=== PATIENT | male | born 1935 | race Caucasian/White ===

== ENCOUNTER 2016-12-18 09:09 | Emergency (ER) | payer MEDICARE ==
[2016-12-18] MEDS ORDERED: Codeine/Promethazine 10-6.25 MG/5 ML Syrup 5 ML UD Cup PO ONE (09:10)
[2016-12-18 09:12] VITALS: BP 135/63
[2016-12-18] MEDS ORDERED: methylPREDNISolone Acetate 80 MG/ML SDV IM ONE (09:47)
[2016-12-18] MEDS ORDERED: cefTRIAXone 1 GM Vial IM ONE (09:47)
[2016-12-18] MEDS ORDERED: Lidocaine 1% 20 ML MDV INJECT ONE (09:47)
[2016-12-18] MEDS ORDERED: Take Home: Codeine/Promethazine 10-6.25 MG/5 ML Syrup 5 ML, 2 Cup Pack PO ONE (09:48)
--- NOTE | 2016-12-18 09:51 | EDM.PDOC ---
ED HPI GENERAL MEDICAL PROBLEM - General Chief Complaint: Respiratory Problem Stated Complaint: cough, sore throat, aches Time Seen by Provider: 12/18/16 09:35 Source of Information: Reports: Patient History Limitations: Reports: No Limitations - History of Present Illness INITIAL COMMENTS - FREE TEXT/NARRATIVE: Patient presents to ER with a 2 day history of cough, shortness of breath, wheezing and a sore throat. States sinuses have been congested as well. Notes postnasal drainage. Denies any fevers. Admits to chest discomfort due to the cough. Unable to sleep due to cough. Has had production of thick phlegm. Does have a history of asthma but admits he hasn't been taking his Symbicort. Does have many chronic medical concerns. Onset: Gradual Duration: Day(s): Location: Reports: Head, Chest Associated Symptoms: Reports: Cough, cough w sputum, Malaise, Shortness of Breath. Denies: Fever/Chills, Loss of Appetite, Nausea/Vomiting - Related Data Allergies Allergy/AdvReac Type Severity Reaction Status Date / Time phenytoin [From Dilantin] Allergy Cannot Verified 12/18/16 09:26 Remember Home Meds: Home Meds Aspirin 325 mg PO DAILY 12/18/16 [History] Budesonide/Formoterol [Symbicort 160-4.5 MCG] 2 puff INH BID 12/18/16 [History] Cholecalciferol (Vitamin D3) [Vitamin D3] 3 tab PO DAILY 12/18/16 [History] Cyanocobalamin (Vitamin B-12) [Vitamin B-12] 1,000 mcg PO DAILY 12/18/16 [ History] Doxazosin Mesylate [Cardura XL] 4 mg PO DAILY 12/18/16 [History] Ezetimibe 0.5 tab PO DAILY 12/18/16 [History] Ferrous Sulfate [Iron] 325 mg PO DAILY 12/18/16 [History] Finasteride 5 mg PO DAILY 12/18/16 [History] Levothyroxine Sodium [Levo-T] 50 mcg PO DAILY 12/18/16 [History] Lisinopril 10 mg PO DAILY 12/18/16 [History] Magnesium 250 mg PO DAILY 12/18/16 [History] Multivitamin [Multi-Vitamin Daily] 1 each PO DAILY 12/18/16 [History] Propranolol HCl 10 mg PO BID 12/18/16 [History] Sertraline HCl 100 mg PO DAILY 12/18/16 [History] Simvastatin [Zocor] 20 mg PO DAILY 12/18/16 [History] Vitamin B Complex [B Complex] 1 each PO DAILY 12/18/16 [History] amLODIPine Besylate [Amlodipine Besylate] 10 mg PO DAILY 12/18/16 [History] glipiZIDE [Glipizide ER] 10 mg PO DAILY 12/18/16 [History] Past Medical History Cardiovascular History: Reports: Heart Murmur, High Cholesterol, Hypertension, [place] Respiratory History: Reports: Asthma, COPD Gastrointestinal History: Reports: GERD Genitourinary History: Reports: BPH Neurological History: Reports: Other (See Below) Other Neuro History: subdural hematoma Psychiatric History: Reports: Anxiety, Depression Endocrine/Metabolic History: Reports: Diabetes, Type II, Hypothyroidism - Past Surgical History HEENT Surgical History: Reports: Cataract Surgery Cardiovascular Surgical History: Reports: Coronary Artery Bypass GI Surgical History: Reports: Colon Neurological Surgical History: Reports: Other (See Below) Other Neurological Surgeries/Procedures: subdural hematoma surgery twice Musculoskeletal Surgical History: Reports: Hip Replacement Social & Family History - Tobacco Use Smoking Status *Q: Former Smoker Used Tobacco, but Quit: Yes Month Tobacco Last Used: 1979 - Caffeine Use Caffeine Use: Reports: Coffee - Recreational Drug Use Recreational Drug Use: No ED ROS GENERAL - Review of Systems Review Of Systems: See Below Constitutional: Reports: Malaise, Weakness, Fatigue. Denies: Fever, Chills, Decreased Appetite HEENT: Reports: Rhinitis, Sinus Problem, Throat Pain. Denies: Ear Pain, Vertigo Respiratory: Reports: Shortness of Breath, Wheezing, Pleuritic Chest Pain, Cough , Sputum Cardiovascular: Denies: Chest Pain, Edema, Lightheadedness Endocrine: Reports: Fatigue GI/Abdominal: Denies: Abdominal Pain, Nausea, Vomiting : Reports: No Symptoms Musculoskeletal: Reports: No Symptoms Skin: Reports: No Symptoms Neurological: Reports: No Symptoms ED EXAM, GENERAL - Physical Exam Exam: See Below Exam Limited By: No Limitations General Appearance: Alert, WD/WN, No Apparent Distress Ears: Normal External Exam, Normal TMs Nose: Normal Inspection, Nasal Drainage, Other (palpable sinus tenderness) Throat/Mouth: Normal Inspection, Other (posterior pharynx is pink with thick postnasal drainage noted) Head: Normocephalic Neck: Normal Inspection, Supple, Non-Tender Respiratory/Chest: No Respiratory Distress, Decreased Breath Sounds, Wheezing ( anterior) Cardiovascular: Regular Rate, Rhythm GI/Abdominal: Normal Bowel Sounds, Soft, Non-Tender Extremities: Normal Inspection Neurological: Alert, Oriented Psychiatric: Normal Affect, Normal Mood Skin Exam: Warm, Dry Course - Vital Signs Last Recorded V/S: Last Vital Signs Temp 99.6 F 12/18/16 09:10 Pulse 86 12/18/16 09:10 Resp 18 12/18/16 09:10 BP 135/63 12/18/16 09:10 Pulse Ox 92 L 12/18/16 09:10 - Orders/Labs/Meds Meds: Medications Discontinued Medications Generic Name Dose Route Start Last Admin Trade Name Luis PRN Reason Stop Dose Admin Ceftriaxone Sodium 1 gm 12/18/16 09:47 Rocephin IM 12/18/16 09:48 ONETIME ONE Lidocaine HCl 20 ml 12/18/16 09:47 Xylocaine 1% INJECT 12/18/16 09:48 ONETIME ONE Methylprednisolone Acetate 80 mg 12/18/16 09:47 Depo-Medrol IM 12/18/16 09:48 ONETIME ONE Promethazine HCl/Codeine 2 packet 12/18/16 09:48 Take Home: Codeine/Prometh 10-6.25 Mg, 2 Pack PO 12/18/16 09:49 ONETIME ONE Departure - Departure Time of Disposition: 09:49 Disposition: Home, Self-Care 01 Condition: Fair Clinical Impression: Sinusitis, Exacerbation of asthma - Discharge Information Referrals: Ethan Hernandez MD [Primary Care Provider] - Forms: ED Department Discharge Additional Instructions: 1. Rest 2. Push fluids 3. Phenergan with codeine 1-2 teaspoons every 6 hours for cough 4. Levaquin 500 mg daily for 10 days 5. Use your Symbicort as directed twice a day 6. Follow up with primary provider if ongoing concern
== END 2016-12-18 10:06 | disposition home or self-care (01) ==
LOC: CC.ED 09:09
DX: J45.901 Unspecified asthma with (acute) exacerbation (principal); J32.9 Chronic sinusitis, unspecified; I10 Essential (primary) hypertension; I25.2 Old myocardial infarction; K21.9 Gastro-esophageal reflux disease without esophagitis; F41.9 Anxiety disorder, unspecified; F32.9 Major depressive disorder, single episode, unspecified; E11.9 Type 2 diabetes mellitus without complications; E03.9 Hypothyroidism, unspecified; Z88.8 Allergy status to other drugs, medicaments and biological substances; E78.00 Pure hypercholesterolemia, unspecified; Z79.899 Other long term (current) drug therapy; Z79.82 Long term (current) use of aspirin; Z87.891 Personal history of nicotine dependence; Z95.1 Presence of aortocoronary bypass graft
CPT/HCPCS: 96372; 99282; A9270; J0696; J1040; 99283

== ENCOUNTER 2019-04-25 19:22 | Inpatient (IN) | payer MEDICARE ==
[2019-04-25] MEDS ORDERED: Albuterol/Ipratropium 3.0-0.5 MG/3 ML Neb Soln NEB ONE ×2 (19:24→19:40)
[2019-04-25] MEDS ORDERED: Albuterol/Ipratropium 3.0-0.5 MG/3 ML Neb Soln ONE (19:25)
--- NOTE | 2019-04-25 19:40 | EDM.PDOC ---
ED HPI GENERAL MEDICAL PROBLEM - General Chief Complaint: Respiratory Problem Stated Complaint: SOB Time Seen by Provider: 04/25/19 19:30 Source of Information: Reports: Patient, Family (brother) History Limitations: Reports: No Limitations - History of Present Illness INITIAL COMMENTS - FREE TEXT/NARRATIVE: Presents to the ER with increasing SOB. States that he has had congestion for 3 days but it became much worse today. Has rhonchi and wheezing throughout. States that he has had some Chest pain on the lateral aspects of both chest georges. Had bypass in 2001 he thinks. Onset: Gradual Location: Reports: Chest Associated Symptoms: Denies: Fever/Chills - Related Data Allergies Allergy/AdvReac Type Severity Reaction Status Date / Time phenytoin [From Dilantin] Allergy Cannot Verified 04/25/19 20:05 Remember Home Meds: Home Meds Aspirin 325 mg PO DAILY 12/18/16 [History] Budesonide/Formoterol [Symbicort 160-4.5 MCG] 2 puff INH BID 12/18/16 [History] Cholecalciferol (Vitamin D3) [Vitamin D3] 3 tab PO DAILY 12/18/16 [History] Cyanocobalamin (Vitamin B-12) [Vitamin B-12] 1,000 mcg PO DAILY 12/18/16 [ History] Doxazosin Mesylate [Cardura XL] 4 mg PO DAILY 12/18/16 [History] Ezetimibe 0.5 tab PO DAILY 12/18/16 [History] Ferrous Sulfate [Iron] 325 mg PO DAILY 12/18/16 [History] Finasteride 5 mg PO DAILY 12/18/16 [History] Levothyroxine Sodium [Levo-T] 50 mcg PO DAILY 12/18/16 [History] Lisinopril 10 mg PO DAILY 12/18/16 [History] Magnesium 250 mg PO DAILY 12/18/16 [History] Multivitamin [Multi-Vitamin Daily] 1 each PO DAILY 12/18/16 [History] Propranolol HCl 10 mg PO BID 12/18/16 [History] Sertraline HCl 100 mg PO DAILY 12/18/16 [History] Simvastatin [Zocor] 20 mg PO DAILY 12/18/16 [History] Vitamin B Complex [B Complex] 1 each PO DAILY 12/18/16 [History] amLODIPine Besylate [Amlodipine Besylate] 10 mg PO DAILY 12/18/16 [History] glipiZIDE [Glipizide ER] 10 mg PO DAILY 12/18/16 [History] Alendronate Sodium [Fosamax] 70 mg PO WEEKLY 04/25/19 [History] Past Medical History Cardiovascular History: Reports: Heart Murmur, High Cholesterol, Hypertension, [place] Respiratory History: Reports: Asthma, COPD Gastrointestinal History: Reports: GERD Genitourinary History: Reports: BPH Neurological History: Reports: Other (See Below) Other Neuro History: subdural hematoma Psychiatric History: Reports: Anxiety, Depression Endocrine/Metabolic History: Reports: Diabetes, Type II, Hypothyroidism - Past Surgical History HEENT Surgical History: Reports: Cataract Surgery Cardiovascular Surgical History: Reports: Coronary Artery Bypass GI Surgical History: Reports: Colon Neurological Surgical History: Reports: Other (See Below) Other Neurological Surgeries/Procedures: subdural hematoma surgery twice Musculoskeletal Surgical History: Reports: Hip Replacement Social & Family History - Tobacco Use Smoking Status *Q: Former Smoker - Caffeine Use Caffeine Use: Reports: Coffee ED ROS GENERAL - Review of Systems Review Of Systems: See Below Constitutional: Denies: Fever, Chills HEENT: Reports: No Symptoms Respiratory: Reports: Shortness of Breath, Wheezing, Cough, Sputum Cardiovascular: Reports: Chest Pain. Denies: Edema GI/Abdominal: Denies: Abdominal Pain, Constipation, Diarrhea : Reports: No Symptoms Musculoskeletal: Reports: No Symptoms Skin: Reports: No Symptoms Neurological: Denies: Confusion, Dizziness ED EXAM, GENERAL - Physical Exam Exam: See Below Exam Limited By: No Limitations General Appearance: Alert, WD/WN, Moderate Distress Ears: Normal External Exam, Normal Canal, Normal TMs Nose: Normal Inspection Head: Atraumatic, Normocephalic Neck: Normal Inspection, Supple, Non-Tender, Full Range of Motion Respiratory/Chest: Respiratory Distress, Rales, Rhonchi, Wheezing Cardiovascular: Regular Rate, Rhythm, No Edema GI/Abdominal: Normal Bowel Sounds, Soft, Non-Tender Back Exam: Normal Inspection, Full Range of Motion Extremities: Normal Inspection, Normal Range of Motion, Non-Tender, Normal Capillary Refill Neurological: Alert, Oriented Skin Exam: Warm, Dry, Intact Course - Vital Signs Last Recorded V/S: Last Vital Signs Temp 99.9 F 04/25/19 19:24 Pulse 89 04/25/19 19:24 Resp 16 04/25/19 20:12 BP 181/73 H 04/25/19 19:24 Pulse Ox 97 04/25/19 20:12 - Orders/Labs/Meds Orders: Active Orders 24 hr Category Date Time Status RT Aerosol Therapy [RC] ASDIRECTED Care 04/25/19 19:35 Active RT Aerosol Therapy [RC] ASDIRECTED Care 04/25/19 19:40 Active Chest 1V Frontal [CR] Stat Exams 04/25/19 19:33 Ordered UA W/MICROSCOPIC [URIN] Stat Lab 04/25/19 19:32 Ordered EKG 12 Lead [EK] Stat Ther 04/25/19 19:32 Ordered Labs: Laboratory Tests 04/25/19 04/25/19 Range/Units 19:35 19:35 WBC 8.5 (5.0-10.0) 10^3/uL RBC 3.01 L (4.50-6.00) 10^6/uL Hgb 9.8 L (14.0-18.0) g/dL Hct 29.1 L (40.0-54.0) % MCV 96.7 H (82.0-94.0) fL MCH 32.6 H (27.0-32.0) pg MCHC 33.7 (33.0-38.0) g/dL RDW Coeff of Beny 14.0 (11.0-15.0) % Plt Count 115 L (150-400) 10^3/uL Neut % (Auto) 70.8 (35-85) % Lymph % (Auto) 16.6 (10-55) % [place] % (Auto) 11.7 (0-16) % Eos % (Auto) 0.7 (0-5) % Baso % (Auto) 0.2 (0-3) % Neut # (Auto) 6.01 (1.80-7.00) 10^3/uL Lymph # (Auto) 1.41 (1.00-4.80) 10^3/uL [place] # (Auto) 0.99 H (0.00-0.80) 10^3/uL Eos # (Auto) 0.06 (0.00-0.45) 10^3/uL Baso # (Auto) 0.02 10^3/uL Sodium 137 (136-145) mEq/L Potassium 5.2 H D (3.5-5.0) mEq/L Chloride 104 (98-106) mEq/L Carbon Dioxide 18 L (21-32) mmol/L BUN 26 H (7-18) mg/dL Creatinine 1.9 H (0.7-1.3) mg/dL Est Cr Clr Drug Dosing 27.39 mL/min Estimated GFR (MDRD) 34 L (>=60) mL/min Glucose 178 H (75-99) mg/dL Calcium 8.5 (8.4-10.1) mg/dL Total Bilirubin 0.5 (0.0-1.0) mg/dL AST 26 (15-37) U/L ALT 20 (12-78) U/L Alkaline Phosphatase 63 (46-116) U/L Lactate Dehydrogenase 222 H (100-190) U/L Creatine Kinase 373 H (35-232) U/L Troponin I < 0.017 (0.00-0.06) ng/mL C-Reactive Protein 10.2 H (0.2-0.8) mg/dL NT-Pro-B Natriuret Pep 3299 H (0-1000) pg/mL Total Protein 7.1 (6.4-8.2) g/dL Albumin 3.7 (3.4-5.0) g/dL Meds: Medications Discontinued Medications Generic Name Dose Route Start Last Admin Trade Name Luis PRN Reason Stop Dose Admin Albuterol/Ipratropium 3 ml 04/25/19 19:24 04/25/19 19:24 Duoneb 3.0-0.5 Mg/3 Ml NEB 04/25/19 19:25 3 ml ONETIME ONE Administration Albuterol/Ipratropium 3 ml 04/25/19 19:40 04/25/19 19:41 Duoneb 3.0-0.5 Mg/3 Ml NEB 04/25/19 19:41 3 ml ONETIME ONE Administration Albuterol/Ipratropium Confirm 04/25/19 19:25 Duoneb 3.0-0.5 Mg/3 Ml Administered 04/25/19 19:26 Dose 3 ml .ROUTE .STK-MED ONE - Re-Assessments/Exams Free Text/Narrative Re-Assessment/Exam: 04/25/19 20:18 Albuterol nebulizers were done back to back and he then did have better lung sounds. He had less wheezing, and rhonchi. He did maintain his sats on 2 liters after treatment. He denies any chest pain when breathing improved. Able to carry on conversation without becoming SOB. His hgb is low at 9.8. He states that his stools are always dark due to the iron. He denies having any active bleeding at this time. Last hgb was 06/05/18 at 11.8. Troponin is negative. Departure - Departure Time of Disposition: 20:23 Disposition: Admitted As Inpatient 68 Condition: Fair Clinical Impression: Hypoxia COPD (chronic obstructive pulmonary disease) Qualifiers: COPD type: chronic bronchitis Chronic bronchitis type: unspecified Qualified Code(s): J42 - Unspecified chronic bronchitis CHF (congestive heart failure) Qualifiers: Heart failure type: unspecified Heart failure chronicity: acute on chronic Qualified Code(s): I50.9 - Heart failure, unspecified - Discharge Information *PRESCRIPTION DRUG MONITORING PROGRAM REVIEWED*: Not Applicable *COPY OF PRESCRIPTION DRUG MONITORING REPORT IN PATIENT MARLENE: Not Applicable Forms: ED Department Discharge Sepsis Event Note - Evaluation Sepsis Screening Result: No Definite Risk - Focused Exam Vital Signs: Vital Signs Temp Pulse Resp BP Pulse Ox 04/25/19 20:12 16 97 04/25/19 20:02 22 H 94 L 04/25/19 19:47 18 98 04/25/19 19:25 98 04/25/19 19:24 99.9 F 89 28 H 181/73 H 90 L Date Exam was Performed: 04/25/19 Time Exam was Performed: 20:12 - Problem List & Annotations (1) COPD (chronic obstructive pulmonary disease) SNOMED Code(s): 94876974 Code(s): J44.9 - CHRONIC OBSTRUCTIVE PULMONARY DISEASE, UNSPECIFIED Status : Acute Priority: High Current Visit: Yes Qualifiers: COPD type: chronic bronchitis Chronic bronchitis type: unspecified Qualified Code(s): J42 - Unspecified chronic bronchitis (2) CHF (congestive heart failure) SNOMED Code(s): 94028641 Code(s): I50.9 - HEART FAILURE, UNSPECIFIED Status: Acute Priority: High Current Visit: Yes Qualifiers: Heart failure type: unspecified Heart failure chronicity: acute on chronic Qualified Code(s): I50.9 - Heart failure, unspecified (3) Hypoxia SNOMED Code(s): 940449718 Code(s): R09.02 - HYPOXEMIA Status: Acute Priority: High Current Visit : Yes - Problem List Review Problem List Initiated/Reviewed/Updated: Yes - My Orders Last 24 Hours: My Active Orders 04/25/19 19:32 UA W/MICROSCOPIC [URIN] Stat EKG 12 Lead [EK] Stat 04/25/19 19:33 Chest 1V Frontal [CR] Stat 04/25/19 19:35 RT Aerosol Therapy [RC] ASDIRECTED 04/25/19 19:40 RT Aerosol Therapy [RC] ASDIRECTED - Assessment/Plan Admission H&P: Please use this note as an admission H&P Last 24 Hours: My Active Orders 04/25/19 19:32 UA W/MICROSCOPIC [URIN] Stat EKG 12 Lead [EK] Stat 04/25/19 19:33 Chest 1V Frontal [CR] Stat 04/25/19 19:35 RT Aerosol Therapy [RC] ASDIRECTED 04/25/19 19:40 RT Aerosol Therapy [RC] ASDIRECTED Plan: Pt will be admitted with repeat cardiac enzymes at midnight and in the AM. Stools will be monitored for his low hgb nebulizers and steroids will be started for the COPD exacerbation.
[2019-04-25 20:07] LABS: CHLORIDE,CL 104 mEq/L (98-106); SODIUM,NA 137 mEq/L (136-145)
[2019-04-25] MEDS ORDERED: Pantoprazole 40 MG Vial IVPUSH SCH (21:00)
[2019-04-25] MEDS ORDERED: methylPREDNISolone Sodium Succinate 125 MG/2 ML SDV IVPUSH SCH (21:00)
[2019-04-25] MEDS ORDERED: Enoxaparin 30 MG/0.3 ML Syringe SUBCUT SCH (21:00)
[2019-04-25] MEDS ORDERED: Sodium Chloride 0.9% 10 ML Syringe FLUSH PRN (21:13)
[2019-04-25] MEDS: Acetaminophen 325 MG Tab PO PRN (22:08)
[2019-04-25] MEDS: Propranolol 10 MG Tab PO SCH (22:18)
[2019-04-25] MEDS: Simvastatin 20 MG Tab PO SCH (22:19)
[2019-04-25] MEDS: Formoterol/Mometasone 200-5 MCG 8.8 GM Inhaler IH SCH (22:19)
[2019-04-26] MEDS ORDERED: Lisinopril 10 MG Tab PO SCH (08:00)
[2019-04-26] MEDS: Formoterol/Mometasone 200-5 MCG 8.8 GM Inhaler IH SCH ×2 (08:05→20:27)
[2019-04-26] MEDS: Albuterol/Ipratropium 3.0-0.5 MG/3 ML Neb Soln NEB SCH ×4 (08:05→20:25)
[2019-04-26] MEDS: Doxazosin 2 MG Tab PO SCH (08:08)
[2019-04-26] MEDS: amLODIPine 10 MG Tab PO SCH (08:08)
[2019-04-26] MEDS: glipiZIDE 5 MG Tab.ER PO SCH (08:08)
[2019-04-26] MEDS: Propranolol 10 MG Tab PO SCH ×2 (08:09→20:26)
[2019-04-26] MEDS: Finasteride 5 MG Tab PO SCH (08:09)
[2019-04-26] MEDS: Aspirin 325 MG Tab PO SCH (08:09)
[2019-04-26] MEDS: Ferrous Sulfate 324 MG Tab.EC PO SCH (08:10)
[2019-04-26] MEDS: Sertraline 100 MG Tab PO SCH (08:10)
[2019-04-26] MEDS: Levothyroxine 50 MCG Tab PO SCH (08:10)
[2019-04-26] MEDS: Pantoprazole 40 MG Vial IVPUSH SCH ×2 (08:39→20:25)
[2019-04-26] MEDS: methylPREDNISolone Sodium Succinate 125 MG/2 ML SDV IVPUSH SCH (08:40)
[2019-04-26] MEDS ORDERED: Sodium Polystyrene Sulfonate 15 GM/60 ML Susp 60 ML Bot PO ONE (09:25)
[2019-04-26] MEDS ORDERED: Furosemide 20 MG/2 ML VIAL IVPUSH ONE (09:26)
[2019-04-26] MEDS: Acetaminophen 325 MG Tab PO PRN (10:07)
[2019-04-26] MEDS: cefTRIAXone 1 GM Vial IVPUSH SCH (10:42)
[2019-04-26] MEDS: Azithromycin 500 MG in Sodium Chloride 0.9% 250 ML IV SCH (10:48)
[2019-04-26] MEDS: EZETIMIBE 10 MG PO SCH (11:02)
[2019-04-26] MEDS: Sodium Chloride 0.45% 1,000 ML IV SCH (17:10)
[2019-04-26] MEDS: Simvastatin 20 MG Tab PO SCH (20:26)
[2019-04-26] MEDS: Enoxaparin 30 MG/0.3 ML Syringe SUBCUT SCH (20:26)
--- NOTE | 2019-04-26 22:30 | PCM.PN ---
- General Info Date of Service: 04/26/19 Admission Dx/Problem (Free Text): COPD Exacerbation Acute on Chronic CHF Functional Status: Reports: Pain Controlled, Tolerating Diet, Ambulating - Review of Systems General: Reports: Weakness, Fatigue, Malaise HEENT: Reports: No Symptoms Pulmonary: Reports: Shortness of Breath, Cough, Wheezing. Denies: Sputum Cardiovascular: Denies: Chest Pain, Edema, Lightheadedness Gastrointestinal: Denies: Abdominal Pain, Nausea, Vomiting Genitourinary: Reports: No Symptoms Musculoskeletal: Reports: No Symptoms Skin: Reports: No Symptoms Neurological: Reports: Weakness - Patient Data Vitals - Most Recent: Last Vital Signs Temp 98.4 F 04/26/19 20:00 Pulse 65 04/26/19 20:26 Resp 18 04/26/19 20:00 BP 137/57 L 04/26/19 20:26 Pulse Ox 97 04/26/19 20:00 Weight - Most Recent: 138 lb 9.6 oz I&O - Last 24 Hours: Intake & Output 04/26/19 04/26/19 04/26/19 06:59 14:59 22:59 Intake Total 100 480 360 Output Total 825 525 Balance 100 -345 -165 Lab Results Last 24 Hours: Laboratory Results - last 24 hr 04/25/19 04/26/19 04/26/19 Range/Units 23:50 06:55 07:00 WBC 6.6 (5.0-10.0) 10^3/uL RBC 2.97 L (4.50-6.00) 10^6/uL Hgb 9.7 L (14.0-18.0) g/dL Hct 29.4 L (40.0-54.0) % MCV 99.0 H (82.0-94.0) fL MCH 32.7 H (27.0-32.0) pg MCHC 33.0 (33.0-38.0) g/dL RDW Coeff of Beny 14.0 (11.0-15.0) % Plt Count 112 L (150-400) 10^3/uL Neut % (Auto) 89.4 H (35-85) % Lymph % (Auto) 9.4 L (10-55) % [place] % (Auto) 1.2 (0-16) % Eos % (Auto) 0 (0-5) % Baso % (Auto) 0 (0-3) % Neut # (Auto) 5.88 (1.80-7.00) 10^3/uL Lymph # (Auto) 0.62 L (1.00-4.80) 10^3/uL [place] # (Auto) 0.08 (0.00-0.80) 10^3/uL Eos # (Auto) 0.00 (0.00-0.45) 10^3/uL Baso # (Auto) 0.00 10^3/uL Sodium (136-145) mEq/L Potassium (3.5-5.0) mEq/L Chloride (98-106) mEq/L Carbon Dioxide (21-32) mmol/L BUN (7-18) mg/dL Creatinine (0.7-1.3) mg/dL Est Cr Clr Drug Dosing mL/min Estimated GFR (MDRD) (>=60) mL/min Glucose (75-99) mg/dL Calcium (8.4-10.1) mg/dL Lactate Dehydrogenase 210 H (100-190) U/L Creatine Kinase 395 H (35-232) U/L Troponin I 0.050 0.024 (0.00-0.06) ng/mL C-Reactive Protein (0.2-0.8) mg/dL Urine Color (YELLOW) Urine Appearance (CLEAR) Urine pH (4.5-8.0) Ur Specific [place] (1.003-1.020) Urine Protein (NEGATIVE) mg/dL Urine Glucose (UA) (NEGATIVE) mg/dL Urine Ketones (NEGATIVE) mg/dL Urine Occult Blood (NEGATIVE) Urine Nitrite (NEGATIVE) Urine Bilirubin (NEGATIVE) Urine Urobilinogen (0.2-1.0) EU/dL Ur Leukocyte Esterase (NEGATIVE) Urine RBC (0-5) /HPF Urine WBC (0-5) /HPF Ur Epithelial Cells (NOT SEEN) /HPF Amorphous Sediment (NOT SEEN) /HPF 04/26/19 04/26/19 04/26/19 Range/Units 07:00 07:55 16:00 WBC (5.0-10.0) 10^3/uL RBC (4.50-6.00) 10^6/uL Hgb (14.0-18.0) g/dL Hct (40.0-54.0) % MCV (82.0-94.0) fL MCH (27.0-32.0) pg MCHC (33.0-38.0) g/dL RDW Coeff of Beny (11.0-15.0) % Plt Count (150-400) 10^3/uL Neut % (Auto) (35-85) % Lymph % (Auto) (10-55) % [place] % (Auto) (0-16) % Eos % (Auto) (0-5) % Baso % (Auto) (0-3) % Neut # (Auto) (1.80-7.00) 10^3/uL Lymph # (Auto) (1.00-4.80) 10^3/uL [place] # (Auto) (0.00-0.80) 10^3/uL Eos # (Auto) (0.00-0.45) 10^3/uL Baso # (Auto) 10^3/uL Sodium 138 136 (136-145) mEq/L Potassium 6.1 H* 5.7 H (3.5-5.0) mEq/L Chloride 105 102 (98-106) mEq/L Carbon Dioxide 21 20 L (21-32) mmol/L BUN 33 H 43 H (7-18) mg/dL Creatinine 2.0 H 2.2 H (0.7-1.3) mg/dL Est Cr Clr Drug Dosing 25.76 23.42 mL/min Estimated GFR (MDRD) 32 L 29 L (>=60) mL/min Glucose 218 H 363 H* D (75-99) mg/dL Calcium 8.2 L 8.6 (8.4-10.1) mg/dL Lactate Dehydrogenase (100-190) U/L Creatine Kinase (35-232) U/L Troponin I (0.00-0.06) ng/mL C-Reactive Protein 11.4 H (0.2-0.8) mg/dL Urine Color Yellow (YELLOW) Urine Appearance Clear (CLEAR) Urine pH 5.5 (4.5-8.0) Ur Specific [place] 1.025 H (1.003-1.020) Urine Protein 100 H (NEGATIVE) mg/dL Urine Glucose (UA) Negative (NEGATIVE) mg/dL Urine Ketones Negative (NEGATIVE) mg/dL Urine Occult Blood Small H (NEGATIVE) Urine Nitrite Negative (NEGATIVE) Urine Bilirubin Negative (NEGATIVE) Urine Urobilinogen 0.2 (0.2-1.0) EU/dL Ur Leukocyte Esterase Negative (NEGATIVE) Urine RBC 0-5 (0-5) /HPF Urine WBC Not seen (0-5) /HPF Ur Epithelial Cells Few H (NOT SEEN) /HPF Amorphous Sediment Few H (NOT SEEN) /HPF Bong Results Last 24 Hours: Microbiology 04/26/19 12:07 Occult Blood - Preliminary Stool / Feces 04/25/19 19:35 Influenza Type A Antigen Screen - Final Nasal Aspirate, Unspecified NEGATIVE INFLUENZA A VIRUS AG REFERENCE RANGE: NEGATIVE Influenza Type B Antigen Screen - Final NEGATIVE INFLUENZA B VIRUS AG REFERENCE RANGE: NEGATIVE Med Orders - Current: Current Medications Acetaminophen (Tylenol) 650 mg PO Q4H PRN PRN Reason: Pain/Fever Last Admin: 04/26/19 10:07 Dose: 650 mg Albuterol/Ipratropium (Duoneb 3.0-0.5 Mg/3 Ml) 3 ml NEB QIDRT [facility] Last Admin: 04/26/19 20:25 Dose: 3 ml Amlodipine Besylate (Norvasc) 10 mg PO DAILY [facility] Last Admin: 04/26/19 08:08 Dose: 10 mg Aspirin (Aspirin) 325 mg PO DAILY [facility] Last Admin: 04/26/19 08:09 Dose: 325 mg Ceftriaxone Sodium (Rocephin) 1 gm IVPUSH Q24H [facility] Last Admin: 04/26/19 10:42 Dose: 1 gm Doxazosin Mesylate (Cardura) 4 mg PO DAILY [facility] Last Admin: 04/26/19 08:08 Dose: 4 mg Enoxaparin Sodium (Lovenox) 30 mg SUBCUT Q24H [facility] Last Admin: 04/26/19 20:26 Dose: 30 mg Ferrous Sulfate (Ferrous Sulfate) 324 mg PO DAILY [facility] Last Admin: 04/26/19 08:10 Dose: 324 mg Finasteride (Proscar) 5 mg PO DAILY [facility] Last Admin: 04/26/19 08:09 Dose: 5 mg Glipizide (Glucotrol Xl) 10 mg PO DAILY [facility] Last Admin: 04/26/19 08:08 Dose: 10 mg Azithromycin 500 mg/ Sodium (Chloride) 250 mls @ 250 mls/hr IV Q24H [facility] Last Admin: 04/26/19 10:48 Dose: 250 mls/hr Sodium Chloride (Sodium Chloride 0.45%) 1,000 mls @ 50 mls/hr IV ASDIRECTED [facility] Last Admin: 04/26/19 17:10 Dose: 50 mls/hr Levothyroxine Sodium (Synthroid) 50 mcg PO DAILY [facility] Last Admin: 04/26/19 08:10 Dose: 50 mcg Lisinopril (Prinivil) 10 mg PO DAILY [facility] Last Admin: 04/26/19 08:10 Dose: 10 mg Magnesium Oxide (Magnesium Oxide) 250 mg PO DAILY [facility] Last Admin: 04/26/19 08:09 Dose: 250 mg Methylprednisolone Sodium Succinate (Solu-Medrol) 62.5 mg IVPUSH Q24H [facility] Last Admin: 04/26/19 08:40 Dose: 62.5 mg Mometasone Furoate/Formoterol Fumar (Dulera 200-5 Mcg) 2 puff IH BIDRT [facility] Last Admin: 04/26/19 20:27 Dose: 2 puff Ezetimibe 10 MgOwn (Med) 0.5 tab PO DAILY [facility] Last Admin: 04/26/19 11:02 Dose: 0.5 tab Pantoprazole Sodium (Protonix Iv) 40 mg IVPUSH Q12H [facility] Last Admin: 04/26/19 20:25 Dose: 40 mg Propranolol HCl (Inderal) 10 mg PO BID [facility] Last Admin: 04/26/19 20:26 Dose: 10 mg Sertraline HCl (Zoloft) 100 mg PO DAILY [facility] Last Admin: 04/26/19 08:10 Dose: 100 mg Simvastatin (Zocor) 20 mg PO BEDTIME [facility] Last Admin: 04/26/19 20:26 Dose: 20 mg Sodium Chloride (Saline Flush) 10 ml FLUSH ASDIRECTED PRN PRN Reason: Keep Vein Open Discontinued Medications Albuterol/Ipratropium (Duoneb 3.0-0.5 Mg/3 Ml) 3 ml NEB ONETIME ONE Stop: 04/25/19 19:25 Last Admin: 04/25/19 19:24 Dose: 3 ml Albuterol/Ipratropium (Duoneb 3.0-0.5 Mg/3 Ml) 3 ml NEB ONETIME ONE Stop: 04/25/19 19:41 Last Admin: 04/25/19 19:41 Dose: 3 ml Albuterol/Ipratropium (Duoneb 3.0-0.5 Mg/3 Ml) Confirm Administered Dose 3 ml .ROUTE .STK-MED ONE Stop: 04/25/19 19:26 Last Admin: 04/25/19 20:46 Dose: Not Given Enoxaparin Sodium (Lovenox) 30 mg SUBCUT Q24H [facility] Last Admin: 04/25/19 22:09 Dose: 30 mg Furosemide (Lasix) 20 mg IVPUSH ONETIME ONE Stop: 04/26/19 09:27 Last Admin: 04/26/19 10:38 Dose: 20 mg Methylprednisolone Sodium Succinate (Solu-Medrol) 62.5 mg IVPUSH Q24H [facility] Last Admin: 04/25/19 22:10 Dose: 62.5 mg Pantoprazole Sodium (Protonix Iv) 40 mg IVPUSH Q12H [facility] Last Admin: 04/25/19 22:10 Dose: 40 mg Sodium Polystyrene Sulfonate (Kayexalate) 15 gm PO ONETIME ONE Stop: 04/26/19 09:26 Last Admin: 04/26/19 10:50 Dose: 15 gm - Exam Quality Assessment: Supplemental Oxygen General: Alert, Oriented HEENT: Mucous Membr. Moist/[place] Neck: Supple Lungs: Decreased Breath Sounds, Rhonchi, Wheezing Cardiovascular: Regular Rate, Regular Rhythm GI/Abdominal Exam: Normal Bowel Sounds, Soft, Non-Tender Extremities: Normal Inspection, No Pedal Edema Skin: Warm, Dry Neurological: No New Focal Deficit Sepsis Event Note - Evaluation Sepsis Screening Result: No Definite Risk - Focused Exam Vital Signs: Vital Signs Temp Pulse Pulse Resp BP BP BP 04/26/19 20:26 65 137/57 L 04/26/19 20:00 98.4 F 65 18 137/57 L 04/26/19 16:00 98.9 F 65 16 139/51 L 04/26/19 12:00 98.0 F 88 20 148/66 H Pulse Ox 04/26/19 20:26 04/26/19 20:00 97 04/26/19 16:00 96 04/26/19 12:00 96 Date Exam was Performed: 04/26/19 Time Exam was Performed: 22:25 - Problem List & Annotations (1) CHF (congestive heart failure) SNOMED Code(s): 94497672 Code(s): I50.9 - HEART FAILURE, UNSPECIFIED Status: Acute Priority: High Current Visit: Yes Qualifiers: Heart failure type: systolic Heart failure chronicity: acute on chronic Qualified Code(s): I50.23 - Acute on chronic systolic (congestive) heart failure Annotation/Comment:: Acute on chronic systolic heart failure, stage 2 (2) COPD (chronic obstructive pulmonary disease) SNOMED Code(s): 96096267 Code(s): J44.9 - CHRONIC OBSTRUCTIVE PULMONARY DISEASE, UNSPECIFIED Status : Acute Priority: High Current Visit: Yes Qualifiers: COPD type: chronic bronchitis Chronic bronchitis type: unspecified Qualified Code(s): J42 - Unspecified chronic bronchitis (3) Hypoxia SNOMED Code(s): 312418239 Code(s): R09.02 - HYPOXEMIA Status: Acute Priority: High Current Visit : Yes (4) Palliative care patient SNOMED Code(s): 075369934 Code(s): Z51.5 - ENCOUNTER FOR PALLIATIVE CARE Status: Acute Current Visit: Yes - Problem List Review Problem List Initiated/Reviewed/Updated: Yes - My Orders Last 24 Hours: My Active Orders 04/26/19 08:30 Azithromycin [Zithromax] 500 mg Sodium Chloride 0.9% [Normal Saline] 250 ml IV Q24H cefTRIAXone [Rocephin] 1 gm IVPUSH Q24H 04/26/19 16:45 Sodium Chloride 0.45% 1,000 ml IV ASDIRECTED 04/27/19 05:11 C-REACTIVE PROTEIN [CHEM] AM CBC WITH AUTO DIFF [HEME] AM COMPREHENSIVE METABOLIC PN,CMP [CHEM] AM - Assessment Assessment:: COPD Exacerbation Acute on chronic systolic heart failure, stage 2 Palliative care patient - Plan Plan:: Patient continues to feel short of breath, especially with minimal activity. Requiring oxygen to maintain sats. Lung sounds diminished throughout with notable wheezing and rhonchi. Afebrile. WBC remains normal today, hemoglobin stable at 9.7. Creatine and BUN have increased slightly as well as potassium high at 6.1. Will give Kayexalate dose today. Lasix 20 mg IV. Start Zithromax and Rocephin. Continue nebs and steroids. Repeat labs later today and in am.
[2019-04-27] MEDS: Doxazosin 2 MG Tab PO SCH (08:07)
[2019-04-27] MEDS: Sertraline 100 MG Tab PO SCH (08:07)
[2019-04-27] MEDS: Aspirin 325 MG Tab PO SCH (08:07)
[2019-04-27] MEDS: amLODIPine 10 MG Tab PO SCH (08:08)
[2019-04-27] MEDS: Levothyroxine 50 MCG Tab PO SCH (08:09)
[2019-04-27] MEDS: Ferrous Sulfate 324 MG Tab.EC PO SCH (08:09)
[2019-04-27] MEDS: Propranolol 10 MG Tab PO SCH ×2 (08:09→19:29)
[2019-04-27] MEDS: Finasteride 5 MG Tab PO SCH (08:10)
[2019-04-27] MEDS: glipiZIDE 5 MG Tab.ER PO SCH (08:11)
[2019-04-27] MEDS: Albuterol/Ipratropium 3.0-0.5 MG/3 ML Neb Soln NEB SCH ×4 (08:11→19:29)
[2019-04-27] MEDS: methylPREDNISolone Sodium Succinate 125 MG/2 ML SDV IVPUSH SCH (08:12)
[2019-04-27] MEDS: Azithromycin 500 MG in Sodium Chloride 0.9% 250 ML IV SCH (08:13)
[2019-04-27] MEDS: cefTRIAXone 1 GM Vial IVPUSH SCH (08:13)
[2019-04-27] MEDS: Pantoprazole 40 MG Vial IVPUSH SCH ×2 (08:13→19:29)
[2019-04-27] MEDS: EZETIMIBE 10 MG PO SCH (08:14)
[2019-04-27] MEDS: Formoterol/Mometasone 200-5 MCG 8.8 GM Inhaler IH SCH ×2 (08:15→19:33)
--- NOTE | 2019-04-27 09:36 | PCM.PN ---
- General Info Date of Service: 04/27/19 Functional Status: Reports: Pain Controlled, Tolerating Diet, Ambulating - Review of Systems General: Denies: Fever HEENT: Reports: No Symptoms. Denies: Post Nasal Drip, Sinus Congestion Pulmonary: Reports: Shortness of Breath, Cough, Sputum Cardiovascular: Reports: No Symptoms. Denies: Edema Gastrointestinal: Reports: No Symptoms Genitourinary: Reports: No Symptoms Musculoskeletal: Reports: No Symptoms Skin: Reports: No Symptoms Neurological: Reports: No Symptoms Psychiatric: Reports: No Symptoms - Patient Data Vitals - Most Recent: Last Vital Signs Temp 97.9 F 04/27/19 08:00 Pulse 62 04/27/19 08:09 Resp 20 04/27/19 08:00 BP 131/53 L 04/27/19 08:09 Pulse Ox 99 04/27/19 08:00 Weight - Most Recent: 142 lb I&O - Last 24 Hours: Intake & Output 04/26/19 04/27/19 04/27/19 22:59 06:59 14:59 Intake Total 360 100 Output Total 525 800 Balance -165 -700 Lab Results Last 24 Hours: Laboratory Results - last 24 hr 04/26/19 04/26/19 04/27/19 Range/Units 16:00 20:20 05:11 WBC 11.1 H (5.0-10.0) 10^3/uL RBC 2.71 L (4.50-6.00) 10^6/uL Hgb 9.0 L (14.0-18.0) g/dL Hct 26.5 L (40.0-54.0) % MCV 97.8 H (82.0-94.0) fL MCH 33.2 H (27.0-32.0) pg MCHC 34.0 (33.0-38.0) g/dL RDW Coeff of Beny 13.8 (11.0-15.0) % Plt Count 131 L (150-400) 10^3/uL Neut % (Auto) 82.8 (35-85) % Lymph % (Auto) 9.8 L (10-55) % [place] % (Auto) 7.4 (0-16) % Eos % (Auto) 0 (0-5) % Baso % (Auto) 0 (0-3) % Neut # (Auto) 9.19 H (1.80-7.00) 10^3/uL Lymph # (Auto) 1.09 (1.00-4.80) 10^3/uL [place] # (Auto) 0.82 H (0.00-0.80) 10^3/uL Eos # (Auto) 0.00 (0.00-0.45) 10^3/uL Baso # (Auto) 0.00 10^3/uL Sodium 136 (136-145) mEq/L Potassium 5.7 H (3.5-5.0) mEq/L Chloride 102 (98-106) mEq/L Carbon Dioxide 20 L (21-32) mmol/L BUN 43 H (7-18) mg/dL Creatinine 2.2 H (0.7-1.3) mg/dL Est Cr Clr Drug Dosing 23.42 mL/min Estimated GFR (MDRD) 29 L (>=60) mL/min Glucose 363 H* D (75-99) mg/dL POC Glucose 358 H (75-105) mg/dl Calcium 8.6 (8.4-10.1) mg/dL Total Bilirubin (0.0-1.0) mg/dL AST (15-37) U/L ALT (12-78) U/L Alkaline Phosphatase (46-116) U/L C-Reactive Protein (0.2-0.8) mg/dL Total Protein (6.4-8.2) g/dL Albumin (3.4-5.0) g/dL 04/27/19 Range/Units 05:11 WBC (5.0-10.0) 10^3/uL RBC (4.50-6.00) 10^6/uL Hgb (14.0-18.0) g/dL Hct (40.0-54.0) % MCV (82.0-94.0) fL MCH (27.0-32.0) pg MCHC (33.0-38.0) g/dL RDW Coeff of Beny (11.0-15.0) % Plt Count (150-400) 10^3/uL Neut % (Auto) (35-85) % Lymph % (Auto) (10-55) % [place] % (Auto) (0-16) % Eos % (Auto) (0-5) % Baso % (Auto) (0-3) % Neut # (Auto) (1.80-7.00) 10^3/uL Lymph # (Auto) (1.00-4.80) 10^3/uL [place] # (Auto) (0.00-0.80) 10^3/uL Eos # (Auto) (0.00-0.45) 10^3/uL Baso # (Auto) 10^3/uL Sodium 140 (136-145) mEq/L Potassium 5.2 H (3.5-5.0) mEq/L Chloride 107 H (98-106) mEq/L Carbon Dioxide 23 (21-32) mmol/L BUN 49 H (7-18) mg/dL Creatinine 1.9 H (0.7-1.3) mg/dL Est Cr Clr Drug Dosing 27.52 mL/min Estimated GFR (MDRD) 34 L (>=60) mL/min Glucose 147 H D (75-99) mg/dL POC Glucose (75-105) mg/dl Calcium 8.1 L (8.4-10.1) mg/dL Total Bilirubin 0.2 (0.0-1.0) mg/dL AST 44 H (15-37) U/L ALT 28 (12-78) U/L Alkaline Phosphatase 60 (46-116) U/L C-Reactive Protein 6.0 H (0.2-0.8) mg/dL Total Protein 6.4 (6.4-8.2) g/dL Albumin 3.1 L (3.4-5.0) g/dL Bong Results Last 24 Hours: Microbiology 04/26/19 10:30 Gram Stain - Final Sputum - Expectorated Sputum Culture - Preliminary Gram Positive Rods 04/26/19 12:07 Occult Blood - Preliminary Stool / Feces Med Orders - Current: Current Medications Acetaminophen (Tylenol) 650 mg PO Q4H PRN PRN Reason: Pain/Fever Last Admin: 04/26/19 10:07 Dose: 650 mg Albuterol/Ipratropium (Duoneb 3.0-0.5 Mg/3 Ml) 3 ml NEB QIDRT [facility] Last Admin: 04/27/19 08:11 Dose: 3 ml Amlodipine Besylate (Norvasc) 10 mg PO DAILY [facility] Last Admin: 04/27/19 08:08 Dose: 10 mg Aspirin (Aspirin) 325 mg PO DAILY [facility] Last Admin: 04/27/19 08:07 Dose: 325 mg Ceftriaxone Sodium (Rocephin) 1 gm IVPUSH Q24H [facility] Last Admin: 04/27/19 08:13 Dose: 1 gm Doxazosin Mesylate (Cardura) 4 mg PO DAILY [facility] Last Admin: 04/27/19 08:07 Dose: 4 mg Enoxaparin Sodium (Lovenox) 30 mg SUBCUT Q24H [facility] Last Admin: 04/26/19 20:26 Dose: 30 mg Ferrous Sulfate (Ferrous Sulfate) 324 mg PO DAILY [facility] Last Admin: 04/27/19 08:09 Dose: 324 mg Finasteride (Proscar) 5 mg PO DAILY [facility] Last Admin: 04/27/19 08:10 Dose: 5 mg Glipizide (Glucotrol Xl) 10 mg PO DAILY [facility] Last Admin: 04/27/19 08:11 Dose: 10 mg Azithromycin 500 mg/ Sodium (Chloride) 250 mls @ 250 mls/hr IV Q24H [facility] Last Admin: 04/27/19 08:13 Dose: 250 mls/hr Sodium Chloride (Sodium Chloride 0.45%) 1,000 mls @ 50 mls/hr IV ASDIRECTED [facility] Last Admin: 04/26/19 17:10 Dose: 50 mls/hr Insulin Human Regular (Humulin R) 0 unit SUBCUT QIDACANDBED [facility]; Protocol Levothyroxine Sodium (Synthroid) 50 mcg PO DAILY [facility] Last Admin: 04/27/19 08:09 Dose: 50 mcg Lisinopril (Prinivil) 10 mg PO DAILY [facility] Last Admin: 04/26/19 08:10 Dose: 10 mg Magnesium Oxide (Magnesium Oxide) 250 mg PO DAILY [facility] Last Admin: 04/27/19 08:06 Dose: 250 mg Methylprednisolone Sodium Succinate (Solu-Medrol) 62.5 mg IVPUSH Q24H [facility] Last Admin: 04/27/19 08:12 Dose: 62.5 mg Mometasone Furoate/Formoterol Fumar (Dulera 200-5 Mcg) 2 puff IH BIDRT [facility] Last Admin: 04/27/19 08:15 Dose: 2 puff Ezetimibe 10 MgOwn (Med) 0.5 tab PO DAILY [facility] Last Admin: 04/27/19 08:14 Dose: 0.5 tab Pantoprazole Sodium (Protonix Iv) 40 mg IVPUSH Q12H [facility] Last Admin: 04/27/19 08:13 Dose: 40 mg Propranolol HCl (Inderal) 10 mg PO BID [facility] Last Admin: 04/27/19 08:09 Dose: 10 mg Sertraline HCl (Zoloft) 100 mg PO DAILY [facility] Last Admin: 04/27/19 08:07 Dose: 100 mg Simvastatin (Zocor) 20 mg PO BEDTIME [facility] Last Admin: 04/26/19 20:26 Dose: 20 mg Sodium Chloride (Saline Flush) 10 ml FLUSH ASDIRECTED PRN PRN Reason: Keep Vein Open Discontinued Medications Albuterol/Ipratropium (Duoneb 3.0-0.5 Mg/3 Ml) 3 ml NEB ONETIME ONE Stop: 04/25/19 19:25 Last Admin: 04/25/19 19:24 Dose: 3 ml Albuterol/Ipratropium (Duoneb 3.0-0.5 Mg/3 Ml) 3 ml NEB ONETIME ONE Stop: 04/25/19 19:41 Last Admin: 04/25/19 19:41 Dose: 3 ml Albuterol/Ipratropium (Duoneb 3.0-0.5 Mg/3 Ml) Confirm Administered Dose 3 ml .ROUTE .STK-MED ONE Stop: 04/25/19 19:26 Last Admin: 04/25/19 20:46 Dose: Not Given Enoxaparin Sodium (Lovenox) 30 mg SUBCUT Q24H [facility] Last Admin: 04/25/19 22:09 Dose: 30 mg Furosemide (Lasix) 20 mg IVPUSH ONETIME ONE Stop: 04/26/19 09:27 Last Admin: 04/26/19 10:38 Dose: 20 mg Methylprednisolone Sodium Succinate (Solu-Medrol) 62.5 mg IVPUSH Q24H [facility] Last Admin: 04/25/19 22:10 Dose: 62.5 mg Pantoprazole Sodium (Protonix Iv) 40 mg IVPUSH Q12H [facility] Last Admin: 04/25/19 22:10 Dose: 40 mg Sodium Polystyrene Sulfonate (Kayexalate) 15 gm PO ONETIME ONE Stop: 04/26/19 09:26 Last Admin: 04/26/19 10:50 Dose: 15 gm - Exam Quality Assessment: Supplemental Oxygen (Was at 99% 2L [place]. RN just turned down to 1L NC. They will evaluate later to ensure oxygen can be weaned. ) General: Alert, Oriented HEENT: Pupils Equal, Pupils Reactive, Mucous Membr. Moist/[place] Neck: Supple, Trachea Midline, No JVD Lungs: Rhonchi (moderate to severe throughout), Wheezing Cardiovascular: Regular Rate, Regular Rhythm, No Murmurs GI/Abdominal Exam: Soft, Non-Tender Back Exam: Normal Inspection Extremities: Normal Inspection, Normal Range of Motion, Non-Tender, No Pedal Edema, Normal Capillary Refill. No: Pedal Edema Peripheral Pulses: 2+: Radial (L), Radial (R), Posterior Tibial (L), Posterior Tibial (R) Skin: Warm, Dry, Intact Psy/Mental Status: Alert, Normal Affect, Normal Mood Sepsis Event Note - Evaluation Sepsis Screening Result: No Definite Risk - Focused Exam Vital Signs: Vital Signs Temp Pulse Pulse Resp BP BP BP 04/27/19 08:09 62 131/53 L 04/27/19 08:08 131/53 L 04/27/19 08:07 131/53 L 04/27/19 08:00 97.9 F 62 20 131/53 L 04/27/19 04:00 97.0 F 65 16 137/54 L 04/27/19 00:00 97.5 F 62 16 126/55 L Pulse Ox 04/27/19 08:09 04/27/19 08:08 04/27/19 08:07 04/27/19 08:00 99 04/27/19 04:00 99 04/27/19 00:00 96 Date Exam was Performed: 04/27/19 Time Exam was Performed: 11:00 - Problem List Review Problem List Initiated/Reviewed/Updated: Yes - My Orders Last 24 Hours: My Active Orders 04/27/19 11:00 Insulin Regular, Human [HumuLIN R] See Protocol SUBCUT QIDACANDBED - Assessment Assessment:: COPD Exacerbation Acute on chronic systolic heart failure, stage 2 Palliative care patient - Plan Plan:: Patient continues to feel short of breath, especially with minimal activity. Requiring oxygen to maintain sats. Lung sounds diminished throughout with notable wheezing and rhonchi. Afebrile. WBC remains normal today, hemoglobin stable at 9.7. Creatine and BUN have increased slightly as well as potassium high at 6.1. Will give Kayexalate dose today. Lasix 20 mg IV. Start Zithromax and Rocephin. Continue nebs and steroids. Repeat labs later today and in am. 04/27/2019 0800 This patient reports that he continues to feel short of breath. However, he does feel as though the shortness of breath is a little better than yesterday. Also, patient has not received breathing treatment yet this morning, he wanted to do after breakfast. Patient is currently eating breakfast without issues, sitting up in bed. The patient does not appear short of breath, or in respiratory distress. Patient is moving air today, but continues to have moderate to severe rhonchi and wheezing. Patient reports fever when he first came in, but has been afebrile since admit. The patient reports he is starting to have a little more energy today compared to yesterday morning. Patient lab potassium today is 5.2, yesterday was 5.2. He had Kayexalate, this has improved. Patient labs today are wbc is 11.1, ch 107, BUN 49, CR 1.9, CRP 6.0, Glucose 147. Yesterday his CR was 2.2, so showing improvement there. His normally baseline CR is about 1.8-1.9. Patient is a diabetic, PO meds. Patient is on steroid here, his BS have been 300s, today was 147. I have added sliding scale insulin. Will continue current abx, nebs, steroids. Will repeat labs in the am. Will attempt to wean patient from oxygen. Will evaluate tomorrow.
[2019-04-27] MEDS: Insulin Regular, Human 100 Units/ML 3 ML Vial SUBCUT SCH ×4 (12:03→21:03)
[2019-04-27] MEDS: Sodium Chloride 0.45% 1,000 ML IV SCH (13:40)
[2019-04-27] MEDS: Enoxaparin 30 MG/0.3 ML Syringe SUBCUT SCH (19:28)
[2019-04-27] MEDS: Simvastatin 20 MG Tab PO SCH (19:29)
[2019-04-28] MEDS: Albuterol/Ipratropium 3.0-0.5 MG/3 ML Neb Soln NEB SCH (07:47)
[2019-04-28] MEDS: Pantoprazole 40 MG Vial IVPUSH SCH (07:48)
[2019-04-28] MEDS: Formoterol/Mometasone 200-5 MCG 8.8 GM Inhaler IH SCH (07:52)
[2019-04-28] MEDS: cefTRIAXone 1 GM Vial IVPUSH SCH (07:54)
[2019-04-28] MEDS: methylPREDNISolone Sodium Succinate 125 MG/2 ML SDV IVPUSH SCH (08:00)
[2019-04-28] MEDS: EZETIMIBE 10 MG PO SCH (08:06)
[2019-04-28] MEDS: Doxazosin 2 MG Tab PO SCH (08:06)
[2019-04-28] MEDS: Finasteride 5 MG Tab PO SCH (08:07)
[2019-04-28] MEDS: Aspirin 325 MG Tab PO SCH (08:07)
[2019-04-28] MEDS: Propranolol 10 MG Tab PO SCH (08:08)
[2019-04-28] MEDS: Ferrous Sulfate 324 MG Tab.EC PO SCH (08:08)
[2019-04-28] MEDS: glipiZIDE 5 MG Tab.ER PO SCH (08:08)
[2019-04-28] MEDS: Levothyroxine 50 MCG Tab PO SCH (08:09)
[2019-04-28] MEDS: Sertraline 100 MG Tab PO SCH (08:10)
[2019-04-28] MEDS: amLODIPine 10 MG Tab PO SCH (08:10)
[2019-04-28 08:11] VITALS: BP 140/52; PULSE 60
[2019-04-28] MEDS: Insulin Regular, Human 100 Units/ML 3 ML Vial SUBCUT SCH (08:11)
[2019-04-28] MEDS: Azithromycin 500 MG in Sodium Chloride 0.9% 250 ML IV SCH (09:12)
--- NOTE | 2019-04-28 10:25 | PCM.DCSUM1 ---
Discharge Summary - Hospital Course HPI Initial Comments: This patient was admitted for COPD exacerbation and hyperkalemia. Labs yesterday were wbc 11.1, hgb 9.0, potassium 5.2, CR 1.9, CRP 6.0. Today labs are wbc 10.4, hgb 9.2, potassium 4.5, CR 1.9, CRP 2.9. His labs have improved today. His potassium is wnl, his CR is baseline for him, CRP is improving and so is his WBC. Yesterday the patient was on 2L NC, weaned to 1L NC at 98% oxygen saturation. Today, oxygen was removed and is 95% RA. He has been able to get up today and ambulate without difficulty. He is moving more air today than yesterday. The patient today reports he is feeling better than yesterday, but not ready to go home just yet. The patient does have moderate rhonchi, wheezing throughout. He does report some shortness of breath, but better than yesterday. Patient is eating and drinking well. I will continue admit for this patient, but to swing. I do feel this patient may be ready to go home within the next 2- 3 days as long as he continues to show improvement. I will discontinue his fluids. Admit Swing. - Discharge Data Discharge Date: 04/28/19 Discharge Disposition: DC/Tfer W/I Hosp To Swing 61 Condition: Fair - Referral to Home Health Primary Care Physician: Katia Victor NP - Patient Instructions Diet: Usual Diet as Tolerated Activity: As Tolerated - Discharge Plan *PRESCRIPTION DRUG MONITORING PROGRAM REVIEWED*: Not Applicable *COPY OF PRESCRIPTION DRUG MONITORING REPORT IN PATIENT MARLENE: Not Applicable Home Medications: Home Meds Aspirin 325 mg PO DAILY 12/18/16 [History] Budesonide/Formoterol [Symbicort 160-4.5 MCG] 2 puff INH BID 12/18/16 [History] Cholecalciferol (Vitamin D3) [Vitamin D3] 3 tab PO DAILY 12/18/16 [History] Cyanocobalamin (Vitamin B-12) [Vitamin B-12] 1,000 mcg PO DAILY 12/18/16 [ History] Doxazosin Mesylate [Cardura XL] 4 mg PO DAILY 12/18/16 [History] Ezetimibe 0.5 tab PO DAILY 12/18/16 [History] Ferrous Sulfate [Iron] 50 mg PO DAILY 12/18/16 [History] Finasteride 5 mg PO DAILY 12/18/16 [History] Levothyroxine Sodium [Levo-T] 50 mcg PO DAILY 12/18/16 [History] Lisinopril 10 mg PO DAILY 12/18/16 [History] Magnesium 250 mg PO DAILY 12/18/16 [History] Multivitamin [Multi-Vitamin Daily] 1 each PO DAILY 12/18/16 [History] Propranolol HCl 10 mg PO BID 12/18/16 [History] Sertraline HCl 100 mg PO DAILY 12/18/16 [History] Simvastatin [Zocor] 20 mg PO BEDTIME 12/18/16 [History] Vitamin B Complex [B Complex] 1 each PO DAILY 12/18/16 [History] amLODIPine Besylate [Amlodipine Besylate] 10 mg PO DAILY 12/18/16 [History] glipiZIDE [Glipizide ER] 10 mg PO DAILY 12/18/16 [History] Alendronate Sodium [Fosamax] 70 mg PO WEEKLY 04/25/19 [History] Oxygen Therapy Mode: Room Air Patient Handouts: Chronic Obstructive Pulmonary Disease, Heart Failure Forms: ED Department Discharge Referrals: Katia Victor NP [Primary Care Provider] - - Discharge Summary/Plan Comment DC Time >30 min.: No - General Info Functional Status: Reports: Pain Controlled, Tolerating Diet, Ambulating, Urinating - Review of Systems General: Reports: No Symptoms. Denies: Fever HEENT: Reports: No Symptoms. Denies: Post Nasal Drip, Sinus Congestion, Sore Throat, Rhinitis Pulmonary: Reports: Shortness of Breath, Cough, Wheezing. Denies: Sputum, Hemoptysis Cardiovascular: Reports: No Symptoms. Denies: Chest Pain, Palpitations, Edema Gastrointestinal: Reports: No Symptoms Genitourinary: Reports: No Symptoms Musculoskeletal: Reports: No Symptoms Skin: Reports: No Symptoms Neurological: Reports: No Symptoms Psychiatric: Reports: No Symptoms - Patient Data Vitals - Most Recent: Last Vital Signs Temp 96.9 F 04/28/19 08:00 Pulse 60 04/28/19 08:08 Resp 16 04/28/19 08:00 BP 140/52 L 04/28/19 08:10 Pulse Ox 95 04/28/19 09:00 Weight - Most Recent: 144 lb I&O - Last 24 hours: Intake & Output 04/27/19 04/28/19 04/28/19 22:59 06:59 14:59 Intake Total 710 100 160 Output Total 900 250 300 Balance -190 -150 -140 Lab Results - Last 24 hrs: Laboratory Results - last 24 hr 04/27/19 04/27/19 04/27/19 Range/Units 11:53 17:03 19:37 WBC (5.0-10.0) 10^3/uL RBC (4.50-6.00) 10^6/uL Hgb (14.0-18.0) g/dL Hct (40.0-54.0) % MCV (82.0-94.0) fL MCH (27.0-32.0) pg MCHC (33.0-38.0) g/dL RDW Coeff of Beny (11.0-15.0) % Plt Count (150-400) 10^3/uL Neut % (Auto) (35-85) % Lymph % (Auto) (10-55) % Gem % (Auto) (0-16) % Eos % (Auto) (0-5) % Baso % (Auto) (0-3) % Neut # (Auto) (1.80-7.00) 10^3/uL Lymph # (Auto) (1.00-4.80) 10^3/uL Gem # (Auto) (0.00-0.80) 10^3/uL Eos # (Auto) (0.00-0.45) 10^3/uL Baso # (Auto) 10^3/uL Sodium (136-145) mEq/L Potassium (3.5-5.0) mEq/L Chloride (98-106) mEq/L Carbon Dioxide (21-32) mmol/L BUN (7-18) mg/dL Creatinine (0.7-1.3) mg/dL Est Cr Clr Drug Dosing mL/min Estimated GFR (MDRD) (>=60) mL/min Glucose (75-99) mg/dL POC Glucose 280 H 340 H 307 H (75-105) mg/dl Calcium (8.4-10.1) mg/dL Total Bilirubin (0.0-1.0) mg/dL AST (15-37) U/L ALT (12-78) U/L Alkaline Phosphatase (46-116) U/L C-Reactive Protein (0.2-0.8) mg/dL Total Protein (6.4-8.2) g/dL Albumin (3.4-5.0) g/dL 04/28/19 04/28/19 04/28/19 Range/Units 07:29 08:58 08:58 WBC 10.4 H (5.0-10.0) 10^3/uL RBC 2.82 L (4.50-6.00) 10^6/uL Hgb 9.2 L (14.0-18.0) g/dL Hct 27.9 L (40.0-54.0) % MCV 98.9 H (82.0-94.0) fL MCH 32.6 H (27.0-32.0) pg MCHC 33.0 (33.0-38.0) g/dL RDW Coeff of Beny 14.0 (11.0-15.0) % Plt Count 152 (150-400) 10^3/uL Neut % (Auto) 83.1 (35-85) % Lymph % (Auto) 11.3 (10-55) % Gem % (Auto) 5.4 (0-16) % Eos % (Auto) 0.1 (0-5) % Baso % (Auto) 0.1 (0-3) % Neut # (Auto) 8.68 H (1.80-7.00) 10^3/uL Lymph # (Auto) 1.18 (1.00-4.80) 10^3/uL Gem # (Auto) 0.56 (0.00-0.80) 10^3/uL Eos # (Auto) 0.01 (0.00-0.45) 10^3/uL Baso # (Auto) 0.01 10^3/uL Sodium 142 (136-145) mEq/L Potassium 4.5 (3.5-5.0) mEq/L Chloride 107 H (98-106) mEq/L Carbon Dioxide 22 (21-32) mmol/L BUN 46 H (7-18) mg/dL Creatinine 1.9 H (0.7-1.3) mg/dL Est Cr Clr Drug Dosing 27.52 mL/min Estimated GFR (MDRD) 34 L (>=60) mL/min Glucose 139 H (75-99) mg/dL POC Glucose 89 (75-105) mg/dl Calcium 7.7 L (8.4-10.1) mg/dL Total Bilirubin 0.2 (0.0-1.0) mg/dL AST 40 H (15-37) U/L ALT 37 (12-78) U/L Alkaline Phosphatase 61 (46-116) U/L C-Reactive Protein 2.9 H (0.2-0.8) mg/dL Total Protein 6.3 L (6.4-8.2) g/dL Albumin 3.1 L (3.4-5.0) g/dL WILLIAM Results - Last 24 hrs: Microbiology 04/26/19 10:30 Gram Stain - Final Sputum - Expectorated Sputum Culture - Final 04/26/19 12:07 Occult Blood - Preliminary Stool / Feces Med Orders - Current: Current Medications Acetaminophen (Tylenol) 650 mg PO Q4H PRN PRN Reason: Pain/Fever Last Admin: 04/26/19 10:07 Dose: 650 mg Albuterol/Ipratropium (Duoneb 3.0-0.5 Mg/3 Ml) 3 ml NEB QIDRT [facility] Last Admin: 04/28/19 07:47 Dose: 3 ml Amlodipine Besylate (Norvasc) 10 mg PO DAILY [facility] Last Admin: 04/28/19 08:10 Dose: 10 mg Aspirin (Aspirin) 325 mg PO DAILY [facility] Last Admin: 04/28/19 08:07 Dose: 325 mg Ceftriaxone Sodium (Rocephin) 1 gm IVPUSH Q24H [facility] Last Admin: 04/28/19 07:54 Dose: 1 gm Doxazosin Mesylate (Cardura) 4 mg PO DAILY [facility] Last Admin: 04/28/19 08:06 Dose: 4 mg Enoxaparin Sodium (Lovenox) 30 mg SUBCUT Q24H [facility] Last Admin: 04/27/19 19:28 Dose: 30 mg Ferrous Sulfate (Ferrous Sulfate) 324 mg PO DAILY [facility] Last Admin: 04/28/19 08:08 Dose: 324 mg Finasteride (Proscar) 5 mg PO DAILY [facility] Last Admin: 04/28/19 08:07 Dose: 5 mg Glipizide (Glucotrol Xl) 10 mg PO DAILY [facility] Last Admin: 04/28/19 08:08 Dose: 10 mg Azithromycin 500 mg/ Sodium (Chloride) 250 mls @ 250 mls/hr IV Q24H [facility] Last Admin: 04/28/19 09:12 Dose: 250 mls/hr Sodium Chloride (Sodium Chloride 0.45%) 1,000 mls @ 50 mls/hr IV ASDIRECTED [facility] Last Admin: 04/27/19 13:40 Dose: 50 mls/hr Insulin Human Regular (Humulin R) 0 unit SUBCUT 0730,1130,1730,2100 [facility]; Protocol Last Admin: 04/28/19 08:11 Dose: Not Given Levothyroxine Sodium (Synthroid) 50 mcg PO DAILY [facility] Last Admin: 04/28/19 08:09 Dose: 50 mcg Lisinopril (Prinivil) 10 mg PO DAILY [facility] Last Admin: 04/26/19 08:10 Dose: 10 mg Magnesium Oxide (Magnesium Oxide) 250 mg PO DAILY [facility] Last Admin: 04/28/19 08:10 Dose: 250 mg Methylprednisolone Sodium Succinate (Solu-Medrol) 62.5 mg IVPUSH Q24H [facility] Last Admin: 04/28/19 08:00 Dose: 62.5 mg Mometasone Furoate/Formoterol Fumar (Dulera 200-5 Mcg) 2 puff IH BIDRT [facility] Last Admin: 04/28/19 07:52 Dose: 2 puff Ezetimibe 10 MgOwn (Med) 0.5 tab PO DAILY [facility] Last Admin: 04/28/19 08:06 Dose: 0.5 tab Pantoprazole Sodium (Protonix Iv) 40 mg IVPUSH Q12H [facility] Last Admin: 04/28/19 07:48 Dose: 40 mg Propranolol HCl (Inderal) 10 mg PO BID [facility] Last Admin: 04/28/19 08:08 Dose: 10 mg Sertraline HCl (Zoloft) 100 mg PO DAILY [facility] Last Admin: 04/28/19 08:10 Dose: 100 mg Simvastatin (Zocor) 20 mg PO BEDTIME [facility] Last Admin: 04/27/19 19:29 Dose: 20 mg Sodium Chloride (Saline Flush) 10 ml FLUSH ASDIRECTED PRN PRN Reason: Keep Vein Open Discontinued Medications Albuterol/Ipratropium (Duoneb 3.0-0.5 Mg/3 Ml) 3 ml NEB ONETIME ONE Stop: 04/25/19 19:25 Last Admin: 04/25/19 19:24 Dose: 3 ml Albuterol/Ipratropium (Duoneb 3.0-0.5 Mg/3 Ml) 3 ml NEB ONETIME ONE Stop: 04/25/19 19:41 Last Admin: 04/25/19 19:41 Dose: 3 ml Albuterol/Ipratropium (Duoneb 3.0-0.5 Mg/3 Ml) Confirm Administered Dose 3 ml .ROUTE .STK-MED ONE Stop: 04/25/19 19:26 Last Admin: 04/25/19 20:46 Dose: Not Given Enoxaparin Sodium (Lovenox) 30 mg SUBCUT Q24H [facility] Last Admin: 04/25/19 22:09 Dose: 30 mg Furosemide (Lasix) 20 mg IVPUSH ONETIME ONE Stop: 04/26/19 09:27 Last Admin: 04/26/19 10:38 Dose: 20 mg Insulin Human Regular (Humulin R) 0 unit SUBCUT QIDACANDBED [facility]; Protocol Last Admin: 04/27/19 19:37 Dose: 4 units Methylprednisolone Sodium Succinate (Solu-Medrol) 62.5 mg IVPUSH Q24H [facility] Last Admin: 04/25/19 22:10 Dose: 62.5 mg Pantoprazole Sodium (Protonix Iv) 40 mg IVPUSH Q12H [facility] Last Admin: 04/25/19 22:10 Dose: 40 mg Sodium Polystyrene Sulfonate (Kayexalate) 15 gm PO ONETIME ONE Stop: 04/26/19 09:26 Last Admin: 04/26/19 10:50 Dose: 15 gm - Exam General: Reports: Alert, Oriented, Cooperative, No Acute Distress Neck: Reports: Supple, Trachea Midline, No JVD Lungs: Reports: Rhonchi (moderate throughout), Wheezing (moderate throughout) Cardiovascular: Reports: Regular Rate, Regular Rhythm GI/Abdominal Exam: Soft, Non-Tender, No Organomegaly, No Distention Back Exam: Reports: Normal Inspection, Full Range of Motion Extremities: Normal Inspection, Normal Range of Motion, Non-Tender, No Pedal Edema, Normal Capillary Refill Skin: Reports: Warm, Dry, Intact Neurological: Reports: No New Focal Deficit Psy/Mental Status: Reports: Alert, Normal Affect, Normal Mood
== END 2019-04-28 10:25 | disposition swing bed (61) | DRG 640 ==
LOC: CC.ED 19:22 → UNDOADMIN 20:14 → CC.MS 20:14 → UNDOADMIN 20:29 → CC.MS 20:29 → UNDOADMIN 21:23 → CC.MS 04-28 10:20 → UNDOADMIN 04-28 10:20 → CC.MS 04-28 10:25 → UNDOADMIN 04-28 10:25 → UNDODISIN 04-28 10:25
PROVIDERS: ADMIT Physician Assistant Medical; ATTEND Family Medicine
DX: E87.5 Hyperkalemia (principal); I50.23 Acute on chronic systolic (congestive) heart failure; J44.1 Chronic obstructive pulmonary disease with (acute) exacerbation; I11.0 Hypertensive heart disease with heart failure; Z51.5 Encounter for palliative care; E78.00 Pure hypercholesterolemia, unspecified; K21.9 Gastro-esophageal reflux disease without esophagitis; E03.9 Hypothyroidism, unspecified; F41.9 Anxiety disorder, unspecified; N40.0 Benign prostatic hyperplasia without lower urinary tract symptoms; F32.9 Major depressive disorder, single episode, unspecified; Z88.5 Allergy status to narcotic agent; E11.9 Type 2 diabetes mellitus without complications; Z96.649 Presence of unspecified artificial hip joint; Z88.8 Allergy status to other drugs, medicaments and biological substances; Z79.82 Long term (current) use of aspirin; Z79.899 Other long term (current) drug therapy; Z79.890 Hormone replacement therapy; Z79.84 Long term (current) use of oral hypoglycemic drugs; I25.2 Old myocardial infarction; Z87.891 Personal history of nicotine dependence; Z98.49 Cataract extraction status, unspecified eye; Z95.1 Presence of aortocoronary bypass graft
CPT/HCPCS: 36415; 71045; 80048; 80053; 81001; 82270; 82550; 82962; 83615; 83880; 84484; 85025; 86140; 87070; 87205; 87804; 93005; 93010; 94640; 99285-25; A9270-GY; C9113; J0456; J0696; J1650; J1815-GY; J1940; J2930; J7030; J7050; J7620-GY

== ENCOUNTER 2019-04-28 10:25 | Inpatient (IN) | payer MEDICARE ==
[2019-04-28] MEDS ORDERED: Sodium Chloride 0.9% 10 ML Syringe FLUSH PRN ×2 (11:37)
[2019-04-28] MEDS: Insulin Regular, Human 100 Units/ML 3 ML Vial SUBCUT SCH ×3 (12:14→21:15)
[2019-04-28] MEDS: Albuterol/Ipratropium 3.0-0.5 MG/3 ML Neb Soln NEB SCH ×2 (13:00→15:19)
--- NOTE | 2019-04-28 16:39 | PCM.SN ---
- Free Text/Narrative Note: 04/28/2019 1630 Patient reports that about 30 minutes ago (4pm) having achiness across his chest that radiates up both sides of face into his temples and head. Patient reports that he has had this before in the past, but this feels a little different than before (2 days ago). Patient reports that he does feel more short of breath than what he has been feeling. He denies nausea. Denies dizziness, lightheaded, palpitations, arm pain, weakness unilateral. Patient received breathing treatment and completed just prior to this pain. I have ordered a troponin, CK, and EKG. Patient lungs sound wheezing and rhonchi throughout. Cardiovascular normal S1, S2. Neuro no unilateral weaknesses on exam. Patient is alert and oriented. He denies abd pain, or back pain. Patient placed back on telemetry. Oxygen is 95% RA. Respiratory Rate of 24, HR 71, BP 138/51. Mildly anxious and uncomfortable. EKG rate of 80, ST Depression, ischemia. I ordered Morphine, ASA, and Nitro SL for this patient. 04/28/2019 1640 Called and spoke to national recruiter from [facility] about this patient and his EKG and troponin. Patient troponin is elevated. Technical Support Technician says he would give ASA, Nitro paste, and Heparin and transfer this patient if patient wants intervention. 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 He reports to discuss risk vs benefits with patient. 04/28/2019 1650 I discussed patient with hospitalist at [facility] Dr. Ochoa. Dr. Ochoa wants me to discuss with patient the risk vs benefits of treatment with this patient. He reports the patient CR is 1.9 and would get IV contrast the puts him at a high risk for renal failure. Also, the heparin would put him at a high risk for head bleed. He reports that if patient elected not to have this intervention done due to these risks, then a transfer is not be need because then the patient would then just need daily asa, beta catalino, and a statin. Which he is already taking. Dr. Ochoa reports he believes the "Risk outweighs Benefits". I then went and discussed at great detail with the patient the risk vs benefits as explained above of high risk of renal failure and high risk head bleed with IV contrast and Heparin. The patient is currently pain free after Morphine and Nitro I had ordered earlier. The patient has elected to stay in [place] and not be transferred and not have cardiac intervention due to the risk factors. Patient believes the risk factors outweigh the benefits. I will keep the patient here in [place], keep pain under control. I have will also change his Duoneb to Albuterol due to cause of tachycardia during tx and possible ischemia cause. Patient has voiced back to me the risks and benefits we have discussed. Jing MEAD is at bedside. Patient elects to stay in [place]. He understands risks of staying could be cardiac arrest, worsening of cardiac , worsening of chest pain, .
[2019-04-28] MEDS: Acetaminophen 325 MG Tab PO PRN (16:51)
[2019-04-28] MEDS ORDERED: Aspirin 81 MG Tab.Chew PO STA (17:12)
[2019-04-28] MEDS ORDERED: Nitroglycerin 0.4 MG Tab.SL SL ONE (17:13)
[2019-04-28] MEDS: Nitroglycerin 2% Oint 1 GM UD Packet TOP SCH (18:31)
[2019-04-28] MEDS: Albuterol 0.083% 2.5 MG/3 ML Neb Soln NEB SCH (19:43)
[2019-04-28] MEDS: Simvastatin 20 MG Tab PO SCH (19:43)
[2019-04-28] MEDS: Pantoprazole 40 MG Vial IVPUSH SCH (19:44)
[2019-04-28] MEDS: Enoxaparin 30 MG/0.3 ML Syringe SUBCUT SCH (19:44)
[2019-04-28] MEDS: Propranolol 10 MG Tab PO SCH (19:44)
[2019-04-28] MEDS: Formoterol/Mometasone 200-5 MCG 8.8 GM Inhaler IH SCH (19:45)
[2019-04-29] MEDS: Nitroglycerin 2% Oint 1 GM UD Packet TOP SCH ×4 (00:03→17:52)
[2019-04-29] MEDS: Albuterol 0.083% 2.5 MG/3 ML Neb Soln NEB SCH ×4 (07:50→19:56)
[2019-04-29] MEDS: Aspirin 325 MG Tab PO SCH (07:51)
[2019-04-29] MEDS: Doxazosin 2 MG Tab PO SCH (07:52)
[2019-04-29] MEDS: amLODIPine 10 MG Tab PO SCH (07:53)
[2019-04-29] MEDS: Ferrous Sulfate 324 MG Tab.EC PO SCH (07:53)
[2019-04-29] MEDS: Lisinopril 10 MG Tab PO SCH (07:53)
[2019-04-29] MEDS: Levothyroxine 50 MCG Tab PO SCH (07:54)
[2019-04-29] MEDS: Finasteride 5 MG Tab PO SCH (07:54)
[2019-04-29] MEDS: Sertraline 100 MG Tab PO SCH (07:55)
[2019-04-29] MEDS: EZETIMIBE 10 MG PO SCH (07:56)
[2019-04-29] MEDS: methylPREDNISolone Sodium Succinate 125 MG/2 ML SDV IVPUSH SCH (07:59)
[2019-04-29] MEDS: Pantoprazole 40 MG Vial IVPUSH SCH ×2 (08:07→19:57)
[2019-04-29] MEDS: glipiZIDE 5 MG Tab.ER PO SCH (08:09)
[2019-04-29] MEDS: Propranolol 10 MG Tab PO SCH ×2 (08:11→19:57)
[2019-04-29] MEDS: Formoterol/Mometasone 200-5 MCG 8.8 GM Inhaler IH SCH ×2 (08:11→19:56)
[2019-04-29] MEDS: Insulin Regular, Human 100 Units/ML 3 ML Vial SUBCUT SCH ×4 (08:12→20:06)
[2019-04-29] MEDS: cefTRIAXone 1 GM Vial IVPUSH SCH (08:16)
[2019-04-29] MEDS: Azithromycin 500 MG in Sodium Chloride 0.9% 250 ML IV SCH (09:09)
[2019-04-29] MEDS: Acetaminophen 325 MG Tab PO PRN (14:11)
[2019-04-29] MEDS: Enoxaparin 30 MG/0.3 ML Syringe SUBCUT SCH (19:56)
[2019-04-29] MEDS: Simvastatin 20 MG Tab PO SCH (19:58)
--- NOTE | 2019-04-29 20:11 | PCM.PN ---
- General Info Date of Service: 04/29/19 Admission Dx/Problem (Free Text): COPD Exacerbation Functional Status: Reports: Pain Controlled, Tolerating Diet, Ambulating - Review of Systems General: Reports: Weakness, Fatigue HEENT: Reports: Rhinitis Pulmonary: Reports: Shortness of Breath, Cough, Wheezing Cardiovascular: Denies: Chest Pain, Edema, Lightheadedness Gastrointestinal: Reports: No Symptoms Genitourinary: Reports: No Symptoms Musculoskeletal: Reports: No Symptoms Skin: Reports: No Symptoms Neurological: Reports: Weakness - Patient Data Vitals - Most Recent: Last Vital Signs Temp 97.8 F 04/29/19 16:00 Pulse 69 04/29/19 19:57 Resp 20 04/29/19 16:00 BP 133/49 L 04/29/19 19:57 Pulse Ox 97 04/29/19 16:00 Weight - Most Recent: 141 lb 9.6 oz I&O - Last 24 Hours: Intake & Output 04/29/19 04/29/19 04/29/19 06:59 14:59 22:59 Intake Total 480 700 Output Total 500 400 700 Balance -500 80 0 Lab Results Last 24 Hours: Laboratory Results - last 24 hr 04/29/19 04/29/19 04/29/19 Range/Units 07:00 08:00 08:07 WBC 9.2 (5.0-10.0) 10^3/uL RBC 2.63 L (4.50-6.00) 10^6/uL Hgb 8.4 L (14.0-18.0) g/dL Hct 26.4 L (40.0-54.0) % MCV 100.4 H (82.0-94.0) fL MCH 31.9 (27.0-32.0) pg MCHC 31.8 L (33.0-38.0) g/dL RDW Coeff of Beny 13.7 (11.0-15.0) % Plt Count 167 (150-400) 10^3/uL Neut % (Auto) 81.4 (35-85) % Lymph % (Auto) 12.3 (10-55) % Traill % (Auto) 6.3 (0-16) % Eos % (Auto) 0 (0-5) % Baso % (Auto) 0 (0-3) % Neut # (Auto) 7.49 H (1.80-7.00) 10^3/uL Lymph # (Auto) 1.13 (1.00-4.80) 10^3/uL Traill # (Auto) 0.58 (0.00-0.80) 10^3/uL Eos # (Auto) 0.00 (0.00-0.45) 10^3/uL Baso # (Auto) 0.00 10^3/uL Sodium 143 (136-145) mEq/L Potassium 4.7 (3.5-5.0) mEq/L Chloride 110 H (98-106) mEq/L Carbon Dioxide 26 (21-32) mmol/L BUN 43 H (7-18) mg/dL Creatinine 1.7 H (0.7-1.3) mg/dL Est Cr Clr Drug Dosing 30.91 mL/min Estimated GFR (MDRD) 39 L (>=60) mL/min Glucose 102 H D (75-99) mg/dL POC Glucose 85 (75-105) mg/dl Calcium 7.6 L (8.4-10.1) mg/dL Troponin I 2.116 H* (0.00-0.06) ng/mL C-Reactive Protein 1.5 H (0.2-0.8) mg/dL NT-Pro-B Natriuret Pep 8583 H (0-1000) pg/mL 04/29/19 Range/Units 11:49 WBC (5.0-10.0) 10^3/uL RBC (4.50-6.00) 10^6/uL Hgb (14.0-18.0) g/dL Hct (40.0-54.0) % MCV (82.0-94.0) fL MCH (27.0-32.0) pg MCHC (33.0-38.0) g/dL RDW Coeff of Beny (11.0-15.0) % Plt Count (150-400) 10^3/uL Neut % (Auto) (35-85) % Lymph % (Auto) (10-55) % Traill % (Auto) (0-16) % Eos % (Auto) (0-5) % Baso % (Auto) (0-3) % Neut # (Auto) (1.80-7.00) 10^3/uL Lymph # (Auto) (1.00-4.80) 10^3/uL Traill # (Auto) (0.00-0.80) 10^3/uL Eos # (Auto) (0.00-0.45) 10^3/uL Baso # (Auto) 10^3/uL Sodium (136-145) mEq/L Potassium (3.5-5.0) mEq/L Chloride (98-106) mEq/L Carbon Dioxide (21-32) mmol/L BUN (7-18) mg/dL Creatinine (0.7-1.3) mg/dL Est Cr Clr Drug Dosing mL/min Estimated GFR (MDRD) (>=60) mL/min Glucose (75-99) mg/dL POC Glucose 220 H (75-105) mg/dl Calcium (8.4-10.1) mg/dL Troponin I (0.00-0.06) ng/mL C-Reactive Protein (0.2-0.8) mg/dL NT-Pro-B Natriuret Pep (0-1000) pg/mL Med Orders - Current: Current Medications Acetaminophen (Tylenol) 650 mg PO Q4H PRN PRN Reason: Pain/Fever Last Admin: 04/29/19 14:11 Dose: 650 mg Albuterol (Proventil Neb Soln) 2.5 mg NEB QIDRT [facility] Last Admin: 04/29/19 19:56 Dose: 2.5 mg Amlodipine Besylate (Norvasc) 10 mg PO DAILY [facility] Last Admin: 04/29/19 07:53 Dose: 10 mg Aspirin (Aspirin) 325 mg PO DAILY [facility] Last Admin: 04/29/19 07:51 Dose: 325 mg Ceftriaxone Sodium (Rocephin) 1 gm IVPUSH Q24H [facility] Last Admin: 04/29/19 08:16 Dose: 1 gm Doxazosin Mesylate (Cardura) 4 mg PO DAILY [facility] Last Admin: 04/29/19 07:52 Dose: 4 mg Enoxaparin Sodium (Lovenox) 30 mg SUBCUT Q24H [facility] Last Admin: 04/29/19 19:56 Dose: 30 mg Ferrous Sulfate (Ferrous Sulfate) 324 mg PO DAILY [facility] Last Admin: 04/29/19 07:53 Dose: 324 mg Finasteride (Proscar) 5 mg PO DAILY [facility] Last Admin: 04/29/19 07:54 Dose: 5 mg Glipizide (Glucotrol Xl) 10 mg PO DAILY [facility] Last Admin: 04/29/19 08:09 Dose: 10 mg Azithromycin 500 mg/ Sodium (Chloride) 250 mls @ 250 mls/hr IV Q24H [facility] Last Admin: 04/29/19 09:09 Dose: 250 mls/hr Insulin Human Regular (Humulin R) 0 unit SUBCUT 0730,1130,1730,2100 [facility]; Protocol Last Admin: 04/29/19 17:50 Dose: 3 unit Levothyroxine Sodium (Synthroid) 50 mcg PO DAILY [facility] Last Admin: 04/29/19 07:54 Dose: 50 mcg Lisinopril (Prinivil) 10 mg PO DAILY [facility] Last Admin: 04/29/19 07:53 Dose: 10 mg Magnesium Oxide (Magnesium Oxide) 250 mg PO DAILY [facility] Last Admin: 04/29/19 08:10 Dose: 250 mg Methylprednisolone Sodium Succinate (Solu-Medrol) 62.5 mg IVPUSH Q24H [facility] Last Admin: 04/29/19 07:59 Dose: 62.5 mg Mometasone Furoate/Formoterol Fumar (Dulera 200-5 Mcg) 0 puff IH BIDRT [facility] Last Admin: 04/29/19 19:56 Dose: 2 puff Nitroglycerin (Nitro-Bid 2%) 1 gm TOP Q6H [facility] Last Admin: 04/29/19 17:52 Dose: 1 gm Pantoprazole Sodium (Protonix Iv) 40 mg IVPUSH Q12H [facility] Last Admin: 04/29/19 19:57 Dose: 40 mg Ezetimibe 10 Mg Tab (*Pt Own Med*) 0 each PO DAILY [facility] Last Admin: 04/29/19 07:56 Dose: 0.5 each Propranolol HCl (Inderal) 10 mg PO BID [facility] Last Admin: 04/29/19 19:57 Dose: 10 mg Sertraline HCl (Zoloft) 100 mg PO DAILY [facility] Last Admin: 04/29/19 07:55 Dose: 100 mg Simvastatin (Zocor) 20 mg PO BEDTIME [facility] Last Admin: 04/29/19 19:58 Dose: 20 mg Sodium Chloride (Saline Flush) 10 ml FLUSH ASDIRECTED PRN PRN Reason: Keep Vein Open Sodium Chloride (Saline Flush) 10 ml FLUSH ASDIRECTED PRN PRN Reason: Keep Vein Open Discontinued Medications Albuterol/Ipratropium (Duoneb 3.0-0.5 Mg/3 Ml) 3 ml NEB QIDRT [id number] Last Admin: 04/28/19 15:19 Dose: 3 ml Aspirin (Aspirin) 324 mg PO NOW STA Stop: 04/28/19 17:13 Last Admin: 04/28/19 17:22 Dose: 324 mg Morphine Sulfate (Morphine) 4 mg IVPUSH ONETIME ONE Stop: 04/28/19 17:13 Last Admin: 04/28/19 17:22 Dose: 4 mg Nitroglycerin (Nitrostat) 0.4 mg SL ONETIME ONE Stop: 04/28/19 17:14 Last Admin: 04/28/19 17:18 Dose: 0.4 mg - Exam Quality Assessment: Supplemental Oxygen General: Alert, Oriented HEENT: Mucous Membr. Moist/[place] Neck: Supple Lungs: Decreased Breath Sounds, Wheezing Cardiovascular: Regular Rate, Regular Rhythm GI/Abdominal Exam: Normal Bowel Sounds, Soft, Non-Tender Extremities: Normal Inspection, No Pedal Edema Skin: Warm, Dry Neurological: No New Focal Deficit Sepsis Event Note - Evaluation Sepsis Screening Result: No Definite Risk - Focused Exam Vital Signs: Vital Signs Temp Pulse Pulse Resp BP BP Pulse Ox 04/29/19 19:57 69 133/49 L 04/29/19 16:00 97.8 F 61 20 130/53 L 97 04/29/19 14:00 76 141/54 H 95 04/29/19 12:00 97.6 F 62 20 128/55 L 96 04/29/19 08:11 65 153/68 H Date Exam was Performed: 04/29/19 Time Exam was Performed: 20:06 - Problem List & Annotations (1) Acute OK SNOMED Code(s): 59008614 Code(s): I21.9 - ACUTE MYOCARDIAL INFARCTION, UNSPECIFIED Status: Acute Current Visit: Yes (2) CHF (congestive heart failure) SNOMED Code(s): 12839839 Code(s): I50.9 - HEART FAILURE, UNSPECIFIED Status: Acute Priority: High Current Visit: Yes Qualifiers: Heart failure type: systolic Heart failure chronicity: acute on chronic Qualified Code(s): I50.23 - Acute on chronic systolic (congestive) heart failure Annotation/Comment:: Acute on chronic systolic heart failure, stage 2 (3) COPD (chronic obstructive pulmonary disease) SNOMED Code(s): 14433224 Code(s): J44.9 - CHRONIC OBSTRUCTIVE PULMONARY DISEASE, UNSPECIFIED Status : Acute Priority: High Current Visit: Yes Qualifiers: COPD type: COPD with acute exacerbation Qualified Code(s): J44.1 - Chronic obstructive pulmonary disease with (acute) exacerbation (4) Palliative care patient SNOMED Code(s): 578424146 Code(s): Z51.5 - ENCOUNTER FOR PALLIATIVE CARE Status: Acute Priority: High Current Visit: Yes - Problem List Review Problem List Initiated/Reviewed/Updated: Yes - My Orders Last 24 Hours: My Active Orders 04/29/19 08:58 Consult to Physical Therapy [PT Evaluation and Treatment] [CONS] Routine 04/29/19 09:21 Chest 2V [CR] Routine - Assessment Assessment:: COPD Exacerbation Acute on chronic systolic CHF, stage 2 Palliative Care Acute OK - Plan Plan:: Patient resting comfortably this am. Good appetite. Denies any chest pain today. Does still short of breath, especially with activity. Lung sounds diminished, wheezing but better air exchange than Monday with my last evaluation. Labs noted to have normal WBC today. CRP 1.5. Creatinine 1.7. Troponin increased to 2.116 this am from 1.57 yesterday. Telemetry shows NSR. Chest xray obtained today. Continue nitropaste as recommended by cardiology yesterday with Jcarlos Sanchez. Did not feel angiogram beneficial as in on statin , aspirin and risk of bleeding with heparin/lovenox due to history of subdural bleed. Discussed this with patient this am, agrees with this.
[2019-04-30] MEDS: Nitroglycerin 2% Oint 1 GM UD Packet TOP SCH ×5 (00:16→22:12)
[2019-04-30] MEDS: methylPREDNISolone Sodium Succinate 125 MG/2 ML SDV IVPUSH SCH (07:32)
[2019-04-30] MEDS: Pantoprazole 40 MG Vial IVPUSH SCH ×2 (07:32→19:19)
[2019-04-30] MEDS: cefTRIAXone 1 GM Vial IVPUSH SCH (07:34)
[2019-04-30] MEDS: amLODIPine 10 MG Tab PO SCH (07:34)
[2019-04-30] MEDS: Doxazosin 2 MG Tab PO SCH (07:34)
[2019-04-30] MEDS: Aspirin 325 MG Tab PO SCH (07:34)
[2019-04-30] MEDS: Ferrous Sulfate 324 MG Tab.EC PO SCH (07:35)
[2019-04-30] MEDS: Levothyroxine 50 MCG Tab PO SCH (07:35)
[2019-04-30] MEDS: Propranolol 10 MG Tab PO SCH ×2 (07:35→19:22)
[2019-04-30] MEDS: glipiZIDE 5 MG Tab.ER PO SCH (07:35)
[2019-04-30] MEDS: Sertraline 100 MG Tab PO SCH (07:35)
[2019-04-30] MEDS: Finasteride 5 MG Tab PO SCH (07:35)
[2019-04-30] MEDS: Albuterol 0.083% 2.5 MG/3 ML Neb Soln NEB SCH ×4 (07:36→19:25)
[2019-04-30] MEDS: Lisinopril 10 MG Tab PO SCH (07:36)
[2019-04-30] MEDS: EZETIMIBE 10 MG PO SCH (07:42)
[2019-04-30] MEDS: Formoterol/Mometasone 200-5 MCG 8.8 GM Inhaler IH SCH ×2 (07:42→19:26)
[2019-04-30] MEDS: Insulin Regular, Human 100 Units/ML 3 ML Vial SUBCUT SCH ×4 (07:47→20:12)
[2019-04-30] MEDS: Azithromycin 500 MG in Sodium Chloride 0.9% 250 ML IV SCH (08:22)
[2019-04-30] MEDS: Acetaminophen 325 MG Tab PO PRN (15:25)
[2019-04-30] MEDS ORDERED: Nitroglycerin 0.4 MG Tab.SL SL ONE (16:24)
[2019-04-30] MEDS ORDERED: Nitroglycerin 0.4 MG Tab.SL SL PRN (18:01)
[2019-04-30] MEDS ORDERED: Alum Hydrox/Mag Hydrox/Simeth 30 ML, Lidocaine 2% 15 ML PO ONE ×2 (18:42)
[2019-04-30] MEDS: Enoxaparin 30 MG/0.3 ML Syringe SUBCUT SCH (19:23)
[2019-04-30] MEDS: Simvastatin 20 MG Tab PO SCH (19:23)
[2019-05-01] MEDS: Nitroglycerin 2% Oint 1 GM UD Packet TOP SCH ×4 (05:16→23:34)
[2019-05-01] MEDS: Doxazosin 2 MG Tab PO SCH (08:08)
[2019-05-01] MEDS: Finasteride 5 MG Tab PO SCH (08:08)
[2019-05-01] MEDS: glipiZIDE 5 MG Tab.ER PO SCH (08:08)
[2019-05-01] MEDS: Aspirin 325 MG Tab PO SCH (08:08)
[2019-05-01] MEDS: Ferrous Sulfate 324 MG Tab.EC PO SCH (08:08)
[2019-05-01] MEDS: Levothyroxine 50 MCG Tab PO SCH (08:09)
[2019-05-01] MEDS: amLODIPine 10 MG Tab PO SCH (08:09)
[2019-05-01] MEDS: Lisinopril 10 MG Tab PO SCH (08:09)
[2019-05-01] MEDS: Sertraline 100 MG Tab PO SCH (08:09)
[2019-05-01] MEDS: Propranolol 10 MG Tab PO SCH ×2 (08:09→20:03)
[2019-05-01] MEDS: Insulin Regular, Human 100 Units/ML 3 ML Vial SUBCUT SCH ×4 (08:10→20:18)
[2019-05-01] MEDS: Albuterol 0.083% 2.5 MG/3 ML Neb Soln NEB SCH ×4 (08:11→20:05)
[2019-05-01] MEDS: Formoterol/Mometasone 200-5 MCG 8.8 GM Inhaler IH SCH ×2 (08:11→20:14)
[2019-05-01] MEDS: Pantoprazole 40 MG Vial IVPUSH SCH ×2 (08:12→20:06)
[2019-05-01] MEDS: methylPREDNISolone Sodium Succinate 125 MG/2 ML SDV IVPUSH SCH (08:17)
[2019-05-01] MEDS: cefTRIAXone 1 GM Vial IVPUSH SCH (08:19)
[2019-05-01] MEDS: EZETIMIBE 10 MG PO SCH (08:19)
[2019-05-01] MEDS: Azithromycin 500 MG in Sodium Chloride 0.9% 250 ML IV SCH (09:42)
[2019-05-01] MEDS: Simvastatin 20 MG Tab PO SCH (20:03)
[2019-05-01] MEDS: Enoxaparin 30 MG/0.3 ML Syringe SUBCUT SCH (20:04)
[2019-05-02] MEDS: Nitroglycerin 2% Oint 1 GM UD Packet TOP SCH (05:19)
[2019-05-02 07:42] VITALS: BP 151/61; PULSE 59
[2019-05-02] MEDS: Insulin Regular, Human 100 Units/ML 3 ML Vial SUBCUT SCH (07:43)
[2019-05-02] MEDS: Finasteride 5 MG Tab PO SCH (07:44)
[2019-05-02] MEDS: Aspirin 325 MG Tab PO SCH (07:44)
[2019-05-02] MEDS: glipiZIDE 5 MG Tab.ER PO SCH (07:44)
[2019-05-02] MEDS: Propranolol 10 MG Tab PO SCH (07:45)
[2019-05-02] MEDS: Sertraline 100 MG Tab PO SCH (07:46)
[2019-05-02] MEDS: Ferrous Sulfate 324 MG Tab.EC PO SCH (07:46)
[2019-05-02] MEDS: Lisinopril 10 MG Tab PO SCH (07:46)
[2019-05-02] MEDS: amLODIPine 10 MG Tab PO SCH (07:47)
[2019-05-02] MEDS: Doxazosin 2 MG Tab PO SCH (07:47)
[2019-05-02] MEDS: methylPREDNISolone Sodium Succinate 125 MG/2 ML SDV IVPUSH SCH (07:48)
[2019-05-02] MEDS: Levothyroxine 50 MCG Tab PO SCH (07:48)
[2019-05-02] MEDS: Formoterol/Mometasone 200-5 MCG 8.8 GM Inhaler IH SCH (07:49)
[2019-05-02] MEDS: Albuterol 0.083% 2.5 MG/3 ML Neb Soln NEB SCH (07:49)
[2019-05-02] MEDS: Pantoprazole 40 MG Vial IVPUSH SCH (07:49)
[2019-05-02] MEDS: EZETIMIBE 10 MG PO SCH (07:49)
[2019-05-02] MEDS: cefTRIAXone 1 GM Vial IVPUSH SCH (07:50)
[2019-05-02] MEDS: Azithromycin 500 MG in Sodium Chloride 0.9% 250 ML IV SCH (09:03)
--- NOTE | 2019-05-02 21:02 | PCM.DCSUM1 ---
Discharge Summary - Hospital Course Free Text/Narrative:: Patient was admitted to acute inpatient for COPD exacerbation and hyperkalemia. Potassium had been high at 5.2 but had returned back to baseline. Creatinine elevated but chronic for him. CRP was high at 6.0 but is returning back to normal. He did require oxygen but was able to be weaned off. Lung sounds were noted to have rhonchi throughout and wheezing, diminished. Are improving. Is still having shortness of breath with exertion. Appetite has been good. Transferred to swing bed for ongoing physical therapy, antibiotics and nebs. Diagnosis: Stroke: No Modified Jacob Scale: No Symptoms at All Modified Jacob Scale Score: 0 - Discharge Data Discharge Date: 05/02/19 Discharge Disposition: Home, Self-Care 01 Condition: Fair - Referral to Home Health Primary Care Physician: Bernardino Park MD - Discharge Diagnosis/Problem(s) (1) Acute SC SNOMED Code(s): 85117193 ICD Code: I21.9 - ACUTE MYOCARDIAL INFARCTION, UNSPECIFIED Status: Acute Priority: High Qualifiers: Myocardial infarction type: non-ST elevation myocardial infarction Qualified Code(s): I21.4 - Non-ST elevation (NSTEMI) myocardial infarction (2) CHF (congestive heart failure) SNOMED Code(s): 11669860 ICD Code: I50.9 - HEART FAILURE, UNSPECIFIED Status: Acute Priority: High Problem Details: Acute on chronic systolic heart failure, stage 2 Qualifiers: Heart failure type: systolic Heart failure chronicity: acute on chronic Qualified Code(s): I50.23 - Acute on chronic systolic (congestive) heart failure (3) COPD (chronic obstructive pulmonary disease) SNOMED Code(s): 21312333 ICD Code: J44.9 - CHRONIC OBSTRUCTIVE PULMONARY DISEASE, UNSPECIFIED Status : Acute Priority: High Qualifiers: COPD type: COPD with acute exacerbation Qualified Code(s): J44.1 - Chronic obstructive pulmonary disease with (acute) exacerbation (4) Palliative care patient SNOMED Code(s): 381019680 ICD Code: Z51.5 - ENCOUNTER FOR PALLIATIVE CARE Status: Acute Priority: High - Patient Summary/Data Complications: Acute SC Consults: Consultations 04/29/19 08:58 Consult to Physical Therapy [PT Evaluation and Treatment] [CONS] Routine Hospital Course: Patient is doing well today. Breathing is easier, lung sounds diminished with fine rales but much improved. He developed chest pain on Monday after transferred to swing bed. EKG and troponin done that showed lateral SC. Jcarlos Sanchez did contact cardiology. As he had renal insufficiency, did not feel was candidate for angiogram. As also had history of subdural bleed, did not feel was safe to give heparin or lovenox. Recommended nitropaste and to continue aspirin and beta blockers. On day 2, pain much improved. Ambulating short distances without pain or breathing difficulties. On day 3 again, patient developed more chest pain. EKG was repeated, more ST depression noted. Was given a nitro spray and increased nitropaste to 1.5 inches. Has been now pain free for 24 hours. Has been ambulating about without discomfort, breathing easier. Does feel ready to be discharged. Will continue with Imdur. Aspirin and his statin. Follow up with Dr. Park next week. - Patient Instructions Diet: Diabetic Diet Activity: As Tolerated - Discharge Plan *PRESCRIPTION DRUG MONITORING PROGRAM REVIEWED*: No *COPY OF PRESCRIPTION DRUG MONITORING REPORT IN PATIENT MARLENE: No Prescriptions/Med Rec: Isosorbide Dinitrate [Isochron] 40 mg PO DAILY #30 tablet.er Pantoprazole Sodium [Protonix] 40 mg PO DAILY #30 tablet. Home Medications: Home Meds Aspirin 325 mg PO DAILY 12/18/16 [History] Budesonide/Formoterol [Symbicort 160-4.5 MCG] 2 puff INH BID 12/18/16 [History] Cholecalciferol (Vitamin D3) [Vitamin D3] 3 tab PO DAILY 12/18/16 [History] Cyanocobalamin (Vitamin B-12) [Vitamin B-12] 1,000 mcg PO DAILY 12/18/16 [ History] Doxazosin Mesylate [Cardura XL] 4 mg PO DAILY 12/18/16 [History] Ezetimibe 0.5 tab PO DAILY 12/18/16 [History] Ferrous Sulfate [Iron] 50 mg PO DAILY 12/18/16 [History] Finasteride 5 mg PO DAILY 12/18/16 [History] Levothyroxine Sodium [Levo-T] 50 mcg PO DAILY 12/18/16 [History] Lisinopril 10 mg PO DAILY 12/18/16 [History] Magnesium 250 mg PO DAILY 12/18/16 [History] Multivitamin [Multi-Vitamin Daily] 1 each PO DAILY 12/18/16 [History] Propranolol HCl 10 mg PO BID 12/18/16 [History] Sertraline HCl 100 mg PO DAILY 12/18/16 [History] Simvastatin [Zocor] 20 mg PO BEDTIME 12/18/16 [History] Vitamin B Complex [B Complex] 1 each PO DAILY 12/18/16 [History] amLODIPine Besylate [Amlodipine Besylate] 10 mg PO DAILY 12/18/16 [History] glipiZIDE [Glipizide ER] 10 mg PO DAILY 12/18/16 [History] Alendronate Sodium [Fosamax] 70 mg PO WEEKLY 04/25/19 [History] Isosorbide Dinitrate [Isochron] 40 mg PO DAILY #30 tablet.er 05/02/19 [Rx] Pantoprazole Sodium [Protonix] 40 mg PO DAILY #30 tablet. 05/02/19 [Rx] Referrals: Bernardino Park MD [Primary Care Provider] - (Follow up with Dr. Park in one week) - Discharge Summary/Plan Comment DC Time >30 min.: No - General Info Date of Service: 05/02/19 Admission Dx/Problem (Free Text: COPD Exacerbation Functional Status: Reports: Pain Controlled, Tolerating Diet, Ambulating - Review of Systems General: Reports: Weakness, Fatigue. Denies: Fever HEENT: Reports: No Symptoms Pulmonary: Reports: Shortness of Breath. Denies: Cough Cardiovascular: Denies: Chest Pain, Edema, Lightheadedness Gastrointestinal: Denies: Abdominal Pain, Nausea, Vomiting Genitourinary: Reports: No Symptoms Musculoskeletal: Reports: No Symptoms Skin: Reports: No Symptoms Neurological: Reports: Weakness - Patient Data Vitals - Most Recent: Last Vital Signs Temp 97.2 F 05/02/19 07:41 Pulse 59 L 05/02/19 07:45 Resp 18 05/02/19 07:41 BP 151/61 H 05/02/19 07:47 Pulse Ox 95 05/02/19 07:41 Weight - Most Recent: 146 lb 12.8 oz I&O - Last 24 hours: Intake & Output 05/02/19 05/02/19 05/02/19 06:59 14:59 22:59 Intake Total 240 Output Total 900 500 Balance -660 -500 Lab Results - Last 24 hrs: Laboratory Results - last 24 hr 05/01/19 05/01/19 05/01/19 Range/Units 11:48 17:17 20:18 POC Glucose 187 H 348 H 360 H (75-105) mg/dl 05/01/19 05/02/19 Range/Units 23:23 07:38 POC Glucose 225 H 64 L (75-105) mg/dl Med Orders - Current: Current Medications Discontinued Medications Acetaminophen (Tylenol) 650 mg PO Q4H PRN PRN Reason: Pain/Fever Last Admin: 04/30/19 15:25 Dose: 650 mg Albuterol (Proventil Neb Soln) 2.5 mg NEB QIDRT [facility] Last Admin: 05/02/19 07:49 Dose: 2.5 mg Albuterol/Ipratropium (Duoneb 3.0-0.5 Mg/3 Ml) 3 ml NEB QIDRT [facility] Last Admin: 04/28/19 15:19 Dose: 3 ml Amlodipine Besylate (Norvasc) 10 mg PO DAILY [facility] Last Admin: 05/02/19 07:47 Dose: 10 mg Aspirin (Aspirin) 325 mg PO DAILY [facility] Last Admin: 05/02/19 07:44 Dose: 325 mg Aspirin (Aspirin) 324 mg PO NOW STA Stop: 04/28/19 17:13 Last Admin: 04/28/19 17:22 Dose: 324 mg Ceftriaxone Sodium (Rocephin) 1 gm IVPUSH Q24H [facility] Last Admin: 05/02/19 07:50 Dose: 1 gm Al Hydroxide/Mg Hydroxide 30 (ml/ Lidocaine HCl 15 ml) 0 ml PO ONETIME ONE Stop: 04/30/19 18:43 Last Admin: 05/01/19 06:36 Dose: Not Given Doxazosin Mesylate (Cardura) 4 mg PO DAILY [facility] Last Admin: 05/02/19 07:47 Dose: 4 mg Enoxaparin Sodium (Lovenox) 30 mg SUBCUT Q24H [facility] Last Admin: 05/01/19 20:04 Dose: 30 mg Ferrous Sulfate (Ferrous Sulfate) 324 mg PO DAILY [facility] Last Admin: 05/02/19 07:46 Dose: 324 mg Finasteride (Proscar) 5 mg PO DAILY [facility] Last Admin: 05/02/19 07:44 Dose: 5 mg Glipizide (Glucotrol Xl) 10 mg PO DAILY [facility] Last Admin: 05/02/19 07:44 Dose: 10 mg Azithromycin 500 mg/ Sodium (Chloride) 250 mls @ 250 mls/hr IV Q24H [facility] Last Admin: 05/02/19 09:03 Dose: 250 mls/hr Insulin Human Regular (Humulin R) 0 unit SUBCUT 0730,1130,1730,2100 [facility]; Protocol Last Admin: 05/02/19 07:43 Dose: Not Given Levothyroxine Sodium (Synthroid) 50 mcg PO DAILY [facility] Last Admin: 05/02/19 07:48 Dose: 50 mcg Lisinopril (Prinivil) 10 mg PO DAILY [facility] Last Admin: 05/02/19 07:46 Dose: 10 mg Magnesium Oxide (Magnesium Oxide) 250 mg PO DAILY [facility] Last Admin: 05/02/19 07:47 Dose: 250 mg Methylprednisolone Sodium Succinate (Solu-Medrol) 62.5 mg IVPUSH Q24H [facility] Last Admin: 05/02/19 07:48 Dose: 62.5 mg Mometasone Furoate/Formoterol Fumar (Dulera 200-5 Mcg) 0 puff IH BIDRT [facility] Last Admin: 05/02/19 07:49 Dose: 2 puff Morphine Sulfate (Morphine) 4 mg IVPUSH ONETIME ONE Stop: 04/28/19 17:13 Last Admin: 04/28/19 17:22 Dose: 4 mg Nitroglycerin (Nitrostat) 0.4 mg SL ONETIME ONE Stop: 04/28/19 17:14 Last Admin: 04/28/19 17:18 Dose: 0.4 mg Nitroglycerin (Nitro-Bid 2%) 1 gm TOP Q6H [facility] Last Admin: 04/30/19 11:29 Dose: 1 gm Nitroglycerin (Nitrostat) 0.4 mg SL ONETIME ONE Stop: 04/30/19 16:25 Last Admin: 04/30/19 16:36 Dose: 0.4 mg Nitroglycerin (Nitro-Bid 2%) 0 gm TOP Q6H [facility] Last Admin: 05/02/19 05:19 Dose: 1 gm Nitroglycerin (Nitrostat) 0.4 mg SL Q5M PRN PRN Reason: Chest Pain Last Admin: 04/30/19 18:00 Dose: 0.4 mg Pantoprazole Sodium (Protonix Iv) 40 mg IVPUSH Q12H [facility] Last Admin: 05/02/19 07:49 Dose: 40 mg Ezetimibe 10 Mg Tab (*Pt Own Med*) 0 each PO DAILY [facility] Last Admin: 05/02/19 07:49 Dose: 1 each Propranolol HCl (Inderal) 10 mg PO BID [facility] Last Admin: 05/02/19 07:45 Dose: 10 mg Sertraline HCl (Zoloft) 100 mg PO DAILY [facility] Last Admin: 05/02/19 07:46 Dose: 100 mg Simvastatin (Zocor) 20 mg PO BEDTIME [facility] Last Admin: 05/01/19 20:03 Dose: 20 mg Sodium Chloride (Saline Flush) 10 ml FLUSH ASDIRECTED PRN PRN Reason: Keep Vein Open Sodium Chloride (Saline Flush) 10 ml FLUSH ASDIRECTED PRN PRN Reason: Keep Vein Open - Exam General: Reports: Alert, Oriented HEENT: Reports: Mucous Membr. Moist/[place] Neck: Reports: Supple Lungs: Reports: Decreased Breath Sounds, Wheezing Cardiovascular: Reports: Regular Rate, Regular Rhythm GI/Abdominal Exam: Normal Bowel Sounds, Soft, Non-Tender Extremities: Normal Inspection, No Pedal Edema Skin: Reports: Warm, Dry Neurological: Reports: No New Focal Deficit
== END 2019-05-02 10:50 | disposition home or self-care (01) | DRG 190 ==
LOC: UNDOADMIN 10:25 → CC.MS 10:25
PROVIDERS: ADMIT Family Medicine; ATTEND Family Medicine
DX: J44.1 Chronic obstructive pulmonary disease with (acute) exacerbation (principal); I50.23 Acute on chronic systolic (congestive) heart failure; I21.4 Non-ST elevation (NSTEMI) myocardial infarction; Z51.5 Encounter for palliative care; E87.5 Hyperkalemia; Z79.82 Long term (current) use of aspirin; Z79.899 Other long term (current) drug therapy; Z79.890 Hormone replacement therapy
CPT/HCPCS: 36415; 71046; 80048; 82550; 82962; 83615; 83880; 84484; 85025; 86140; 93005; 94640; 97110-GP; 97161-GP; 97530-GP; A9270-GY; C9113; J0456; J0696; J1650; J2270; J2930; J7050; J7613-GY; J7620-GY

== ENCOUNTER 2020-11-12 01:08 | Emergency (ER) | payer MEDICARE ==
[2020-11-12 01:47] LABS: CHLORIDE,CL 109 mEq/L (98-106); SODIUM,NA 142 mEq/L (136-145)
[2020-11-12 01:49] LABS: PTT,PARTIAL THROMBOPLSTIN TIME 22.7 SEC (23.2-32.3)
--- NOTE | 2020-11-12 02:19 | EDM.PDOC ---
ED HPI GENERAL MEDICAL PROBLEM - General Chief Complaint: Chest Pain Stated Complaint: CP Time Seen by Provider: 11/12/20 01:30 Source of Information: Reports: Patient, RN History Limitations: Reports: No Limitations - History of Present Illness INITIAL COMMENTS - FREE TEXT/NARRATIVE: States that he had some chest pain yesterday and it went away on it's own. When he was eating supper the pain came back and it didn't go away. He did have some SOB with it but not radiation of the pain, no diaphoresis. He decided to go to bed and hoped it would go away, it kept him awake so he called the ambulance about 0100 this AM. They did give him 1 nitro per EMS and the pain went away and has not returned. He currently is pain free when examined. He relates the pain was midsternal and felt like when he had his last heart attack but not as severe. His SOB is now gone since the chest pain is relieved. He has not had any edema. Onset Date: 11/11/20 Location: Reports: Chest Treatments [employer]: Reports: Nitroglycerin - Related Data Allergies Allergy/AdvReac Type Severity Reaction Status Date / Time phenytoin [From Dilantin] Allergy Cannot Verified 11/12/20 01:34 Remember Home Meds: Home Meds Aspirin 325 mg PO DAILY 12/18/16 [History] Budesonide/Formoterol [Symbicort 160-4.5 MCG] 2 puff INH BID 12/18/16 [History] Cholecalciferol (Vitamin D3) [Vitamin D3] 3 tab PO DAILY 12/18/16 [History] Cyanocobalamin (Vitamin B-12) [Vitamin B-12] 1,000 mcg PO DAILY 12/18/16 [History] Doxazosin Mesylate [Cardura XL] 4 mg PO DAILY 12/18/16 [History] Ezetimibe 0.5 tab PO DAILY 12/18/16 [History] Ferrous Sulfate [Iron] 50 mg PO DAILY 12/18/16 [History] Finasteride 5 mg PO DAILY 12/18/16 [History] Levothyroxine Sodium [Levo-T] 50 mcg PO DAILY 12/18/16 [History] Lisinopril 10 mg PO DAILY 12/18/16 [History] Magnesium 250 mg PO DAILY 12/18/16 [History] Multivitamin [Multi-Vitamin Daily] 1 each PO DAILY 12/18/16 [History] Propranolol HCl 10 mg PO BID 12/18/16 [History] Sertraline HCl 100 mg PO DAILY 12/18/16 [History] Simvastatin [Zocor] 20 mg PO BEDTIME 12/18/16 [History] Vitamin B Complex [B Complex] 1 each PO DAILY 12/18/16 [History] amLODIPine Besylate [Amlodipine Besylate] 10 mg PO DAILY 12/18/16 [History] glipiZIDE [Glipizide ER] 10 mg PO DAILY 12/18/16 [History] Alendronate Sodium [Fosamax] 70 mg PO WEEKLY 04/25/19 [History] Isosorbide Dinitrate [Isochron] 40 mg PO DAILY #30 tablet.er 05/02/19 [Rx] Pantoprazole Sodium [Protonix] 40 mg PO DAILY #30 tablet. 05/02/19 [Rx] Past Medical History Cardiovascular History: Reports: Heart Murmur, High Cholesterol, Hypertension, [place] Respiratory History: Reports: Asthma, COPD Gastrointestinal History: Reports: GERD Genitourinary History: Reports: BPH Neurological History: Reports: Other (See Below) Other Neuro History: subdural hematoma Psychiatric History: Reports: Anxiety, Depression Endocrine/Metabolic History: Reports: Diabetes, Type II, Hypothyroidism - Past Surgical History HEENT Surgical History: Reports: Cataract Surgery Cardiovascular Surgical History: Reports: Coronary Artery Bypass GI Surgical History: Reports: Colon Neurological Surgical History: Reports: Other (See Below) Other Neurological Surgeries/Procedures: subdural hematoma surgery twice Musculoskeletal Surgical History: Reports: Hip Replacement Social & Family History - Family History Family Medical History: No Pertinent Family History - Tobacco Use Tobacco Use Status *Q: Never Tobacco User - Caffeine Use Caffeine Use: Reports: Coffee - Living Situation & Occupation Living situation: Reports: Single, Alone Occupation: Retired ED ROS GENERAL - Review of Systems Review Of Systems: See Below Constitutional: Denies: Fever, Chills HEENT: Reports: No Symptoms Respiratory: Reports: Shortness of Breath Cardiovascular: Reports: Chest Pain. Denies: Edema GI/Abdominal: Reports: No Symptoms. Denies: Abdominal Pain : Reports: No Symptoms Musculoskeletal: Reports: No Symptoms Skin: Reports: No Symptoms Neurological: Denies: Dizziness ED EXAM, GENERAL - Physical Exam Exam: See Below Exam Limited By: No Limitations General Appearance: Alert, WD/WN, No Apparent Distress Ears: Normal External Exam, Normal Canal, Normal TMs Throat/Mouth: Normal Inspection, Normal Oropharynx Head: Atraumatic, Normocephalic Neck: Normal Inspection, Supple, Non-Tender Respiratory/Chest: No Respiratory Distress, Lungs Clear, Normal Breath Sounds Cardiovascular: Normal Peripheral Pulses, Regular Rate, Rhythm, No Edema GI/Abdominal: Normal Bowel Sounds, Soft Extremities: Normal Inspection, No Pedal Edema Neurological: Alert, Oriented Skin Exam: Warm, Dry, Intact Course - Vital Signs Last Recorded V/S: Last Vital Signs Temp 96.0 F L 11/12/20 04:11 Pulse 52 L 11/12/20 04:11 Resp 16 11/12/20 04:11 BP 128/51 L 11/12/20 04:11 Pulse Ox 95 11/12/20 04:11 - Orders/Labs/Meds Orders: Active Orders 24 hr Category Date Time Status EKG Documentation Completion [RC] ROUTINE Care 11/12/20 06:47 Active EKG Documentation Completion [RC] STAT Care 11/12/20 01:09 Active Chest 2V [CR] Stat Exams 11/12/20 01:09 Taken EKG 12 Lead [EK] AM Ther 11/13/20 05:11 Stop Req EKG 12 Lead [EK] AM Ther 11/14/20 05:11 Stop Req Labs: Laboratory Tests 11/12/20 11/12/20 11/12/20 Range/Units 01:20 01:20 01:20 WBC 6.7 (4.0-11.0) 10^3/uL RBC 2.82 L (4.50-6.00) x10^6/uL Hgb 9.3 L (14.0-18.0) g/dL Hct 26.7 L (42.0-52.0) % MCV 94.7 (83.0-97.0) fL MCH 33.0 H (27.0-32.0) pg MCHC 34.8 (32.0-36.0) g/dL RDW Coeff of Beny 13.2 (11.0-15.0) % Plt Count 124 L (150-400) 10^3/uL Immature Gran % (Auto) 0.1 (0.0-4.9) % Neut % (Auto) 60.5 (41-71) % Lymph % (Auto) 28.4 (24-44) % Mcpherson % (Auto) 8.6 (0-10) % Eos % (Auto) 1.8 (0-6) % Baso % (Auto) 0.6 (0-1) % Neut # (Auto) 4.06 (1.80-8.00) x10^3/uL Lymph # (Auto) 1.91 (0.60-5.00) 10^3/uL Mcpherson # (Auto) 0.58 (0.00-1.50) 10^3/uL Eos # (Auto) 0.12 (0.00-1.50) 10^3/uL Baso # (Auto) 0.04 (0.00-0.50) 10^3/uL Immature Gran # (Auto) 0.01 (0.00-0.49) 10^3/uL PT 10.5 (9.7-12.3) SEC INR 0.96 (0.92-1.18) APTT 22.7 L (23.2-32.3) SEC Sodium 142 (136-145) mEq/L Potassium 5.0 (3.5-5.0) mEq/L Chloride 109 H (98-106) mEq/L Carbon Dioxide 22 (21-32) mmol/L BUN 49 H (7-18) mg/dL Creatinine 2.0 H (0.7-1.3) mg/dL Est Cr Clr Drug Dosing TNP Estimated GFR (MDRD) 32 L (>=60) mL/min Glucose 176 H (75-99) mg/dL Calcium 7.9 L (8.4-10.1) mg/dL Magnesium 1.6 L (1.8-2.4) mg/dL Total Bilirubin 0.3 (0.0-1.0) mg/dL AST 13 L (15-37) U/L ALT 18 (12-78) U/L Alkaline Phosphatase 68 (46-116) U/L Lactate Dehydrogenase 138 (100-190) U/L Creatine Kinase 50 (35-232) U/L Troponin I < 0.017 (0.00-0.06) ng/mL Total Protein 6.6 (6.4-8.2) g/dL Albumin 3.4 (3.4-5.0) g/dL Lipase 446 H (73-393) U/L 11/12/20 Range/Units 06:30 WBC (4.0-11.0) 10^3/uL RBC (4.50-6.00) x10^6/uL Hgb (14.0-18.0) g/dL Hct (42.0-52.0) % MCV (83.0-97.0) fL MCH (27.0-32.0) pg MCHC (32.0-36.0) g/dL RDW Coeff of Beny (11.0-15.0) % Plt Count (150-400) 10^3/uL Immature Gran % (Auto) (0.0-4.9) % Neut % (Auto) (41-71) % Lymph % (Auto) (24-44) % Mcpherson % (Auto) (0-10) % Eos % (Auto) (0-6) % Baso % (Auto) (0-1) % Neut # (Auto) (1.80-8.00) x10^3/uL Lymph # (Auto) (0.60-5.00) 10^3/uL [place]son # (Auto) (0.00-1.50) 10^3/uL Eos # (Auto) (0.00-1.50) 10^3/uL Baso # (Auto) (0.00-0.50) 10^3/uL Immature Gran # (Auto) (0.00-0.49) 10^3/uL PT (9.7-12.3) SEC INR (0.92-1.18) APTT (23.2-32.3) SEC Sodium (136-145) mEq/L Potassium (3.5-5.0) mEq/L Chloride (98-106) mEq/L Carbon Dioxide (21-32) mmol/L BUN (7-18) mg/dL Creatinine (0.7-1.3) mg/dL Est Cr Clr Drug Dosing Estimated GFR (MDRD) (>=60) mL/min Glucose (75-99) mg/dL Calcium (8.4-10.1) mg/dL Magnesium (1.8-2.4) mg/dL Total Bilirubin (0.0-1.0) mg/dL AST (15-37) U/L ALT (12-78) U/L Alkaline Phosphatase (46-116) U/L Lactate Dehydrogenase 134 (100-190) U/L Creatine Kinase 43 (35-232) U/L Troponin I < 0.017 (0.00-0.06) ng/mL Total Protein (6.4-8.2) g/dL Albumin (3.4-5.0) g/dL Lipase (73-393) U/L - Re-Assessments/Exams Free Text/Narrative Re-Assessment/Exam: 11/12/20 02:00. Labs currently are within normal limits and EKG does not show any ST changes. Will keep as extended ER and repeat labs and EKG in the morning and discharge if he is normal and remains pain free. 11/12/20 07: labs are normal this AM and EKG does not show any ST changes. He has not had any further chest pain. Will discharge with follow up with Dr. Park on Monday. Departure - Departure Time of Disposition: : Disposition: Home, Self-Care 01 Condition: Fair Clinical Impression: Chest pain in adult Instructions: Nonspecific Chest Pain, Adult, [id number] Forms: ED Department Discharge Additional Instructions: continue on same meds ER recheck on Monday with Dr. Park Recheck sooner if chest pain reoccurs. Sepsis Event Note (ED) - Evaluation Sepsis Screening Result: No Definite Risk - Focused Exam Vital Signs: Vital Signs Temp Pulse Resp BP Pulse Ox 11/12/20 04:11 96.0 F L 52 L 16 128/51 L 95 11/12/20 02:00 67 138/62 11/12/20 01:35 98 F 72 18 154/52 H 97 - My Orders Last 24 Hours: My Active Orders 11/12/20 01:09 EKG Documentation Completion [RC] STAT Chest 2V [CR] Stat 11/12/20 06:47 EKG Documentation Completion [RC] ROUTINE 11/13/20 05:11 EKG 12 Lead [EK] AM 11/14/20 05:11 EKG 12 Lead [EK] AM - Assessment/Plan Last 24 Hours: My Active Orders 11/12/20 01:09 EKG Documentation Completion [RC] STAT Chest 2V [CR] Stat 11/12/20 06:47 EKG Documentation Completion [RC] ROUTINE 11/13/20 05:11 EKG 12 Lead [EK] AM 11/14/20 05:11 EKG 12 Lead [EK] AM
[2020-11-12 04:11] VITALS: BP 128/51; PULSE 52
== END 2020-11-12 08:00 | disposition home or self-care (01) ==
LOC: CC.ED 01:08
DX: R07.9 Chest pain, unspecified (principal); E78.00 Pure hypercholesterolemia, unspecified; I10 Essential (primary) hypertension; I25.2 Old myocardial infarction; J44.9 Chronic obstructive pulmonary disease, unspecified; E11.9 Type 2 diabetes mellitus without complications; E03.9 Hypothyroidism, unspecified; Z79.82 Long term (current) use of aspirin; Z79.899 Other long term (current) drug therapy; Z88.1 Allergy status to other antibiotic agents
CPT/HCPCS: 36415; 71046; 80053; 82550; 83615; 83690; 83735; 84484; 85025; 85610; 85730; 93005; 93010; 99285-25

== ENCOUNTER 2021-07-05 22:10 | Observation (INO) | payer MEDICARE ==
[2021-07-05] MEDS ORDERED: Alum Hydrox/Mag Hydrox/Simeth 30 ML, Lidocaine 2% 15 ML PO ONE ×2 (22:37)
[2021-07-05] MEDS ORDERED: Morphine 2 MG/ML SYRINGE IVPUSH ONE (23:11)
[2021-07-05] MEDS ORDERED: Sodium Chloride 0.9% 10 ML Syringe FLUSH PRN (23:58)
[2021-07-06] MEDS ORDERED: Morphine 2 MG/ML SYRINGE IVPUSH PRN (00:48)
[2021-07-06] MEDS ORDERED: Cyanocobalamin (Vitamin B12) 1,000 MCG Tab PO SCH (08:00)
[2021-07-06] MEDS ORDERED: Cholecalciferol (Vitamin D3) 25 MCG Tab PO SCH (08:00)
[2021-07-06] MEDS ORDERED: Levothyroxine 50 MCG Tab PO SCH (08:00)
[2021-07-06] MEDS ORDERED: DOXAZOSIN MESYLATE 8 MG PO SCH (08:00)
[2021-07-06] MEDS ORDERED: Non-Formulary Medication 1 Each (Ferrous Sulfate [Iron] 325 MG Tablet) PO SCH (08:00)
[2021-07-06] MEDS ORDERED: Sertraline 100 MG Tab PO SCH (08:00)
[2021-07-06] MEDS ORDERED: Furosemide 20 MG Tab PO SCH (08:00)
[2021-07-06] MEDS ORDERED: amLODIPine 10 MG Tab PO SCH (08:00)
[2021-07-06] MEDS ORDERED: Propranolol 10 MG Tab PO SCH (08:00)
[2021-07-06] MEDS ORDERED: Lisinopril 10 MG Tab PO SCH (08:00)
[2021-07-06] MEDS ORDERED: Non-Formulary Medication 1 Each (Vitamin B Complex [B Complex] 1 EACH Tablet) PO SCH (08:00)
[2021-07-06] MEDS ORDERED: Finasteride 5 MG Tab PO SCH (08:00)
[2021-07-06] MEDS ORDERED: Non-Formulary Medication 1 Each (Multivitamin [Multi-Vitamin Daily] 1 EACH Tablet) PO SCH (08:00)
[2021-07-06] MEDS ORDERED: Non-Formulary Medication 1 Each (Budesonide/Formoterol 6 GM Inhaler) INH SCH (08:00)
[2021-07-06] MEDS ORDERED: EZETIMIBE 10 MG PO SCH (08:00)
[2021-07-06] MEDS ORDERED: ISOSORBIDE DINITRATE 40 MG PO SCH (08:00)
[2021-07-06] MEDS ORDERED: glipiZIDE 5 MG Tab.ER PO SCH (08:00)
[2021-07-06] MEDS ORDERED: Aspirin 81 MG Tab.Chew PO ONE (08:18)
[2021-07-06] MEDS: Nitroglycerin 0.4 MG Tab.SL SL PRN ×2 (08:32→08:37)
[2021-07-06] MEDS ORDERED: Heparin Sodium 5,000 Units/ML Vial IVPUSH ONE (08:44)
[2021-07-06] MEDS ORDERED: Heparin Sodium/0.45% NaCl 500 ML IV SCH (08:45)
[2021-07-06 08:46] VITALS: BP 107/54; PULSE 71
== END 2021-07-06 09:31 ==
LOC: CC.ED 22:10 → CC.MS 23:12 → UNDOADMOB 23:20 → CC.ED 23:20
PROVIDERS: ADMIT Nurse Practitioner Family; ATTEND Nurse Practitioner Family
DX: I21.4 Non-ST elevation (NSTEMI) myocardial infarction (principal); E78.00 Pure hypercholesterolemia, unspecified; I10 Essential (primary) hypertension; J44.9 Chronic obstructive pulmonary disease, unspecified; K21.9 Gastro-esophageal reflux disease without esophagitis; E11.9 Type 2 diabetes mellitus without complications; E03.9 Hypothyroidism, unspecified; Z95.1 Presence of aortocoronary bypass graft; Z88.8 Allergy status to other drugs, medicaments and biological substances; Z79.899 Other long term (current) drug therapy; Z79.890 Hormone replacement therapy; Z79.51 Long term (current) use of inhaled steroids
CPT/HCPCS: 36415; 71045; 80053; 82947; 84484; 85025; 93005; 96365; 96374; 96375; 96376; 99217; 99220; 99285-25; A9270-GY; G0378; J1644; J2270

== ENCOUNTER 2021-10-17 14:52 | Emergency (ER) | payer MEDICARE ==
[2021-10-17] MEDS ORDERED: Diphtheria,Pertussis(Acell),Tetanus Vaccine 0.5 ML Syringe IM ONE (15:51)
[2021-10-17 17:58] VITALS: BP 159/64; PULSE 57
== END 2021-10-17 16:25 | disposition home or self-care (01) ==
LOC: CC.ED 14:52
DX: S46.911A Strain of unspecified muscle, fascia and tendon at shoulder and upper arm level, right arm, initial encounter (principal); S00.03XA Contusion of scalp, initial encounter; S50.312A Abrasion of left elbow, initial encounter; E78.00 Pure hypercholesterolemia, unspecified; I10 Essential (primary) hypertension; I25.2 Old myocardial infarction; J44.9 Chronic obstructive pulmonary disease, unspecified; E11.9 Type 2 diabetes mellitus without complications; E03.9 Hypothyroidism, unspecified; Z88.8 Allergy status to other drugs, medicaments and biological substances; Z79.899 Other long term (current) drug therapy; Z95.1 Presence of aortocoronary bypass graft; Z23 Encounter for immunization; W18.09XA Striking against other object with subsequent fall, initial encounter
CPT/HCPCS: 70450; 73030-RT; 90471; 90715; 99284-25

== ENCOUNTER 2021-11-09 17:16 | Emergency (ER) | payer MEDICARE ==
[2021-11-09] MEDS ORDERED: Sodium Chloride 0.9% 10 ML Syringe FLUSH PRN (17:30)
[2021-11-09 18:00] VITALS: BP 204/78; PULSE 69
== END 2021-11-09 19:23 | disposition home or self-care (01) ==
LOC: SUPCPDRO 17:16 → CC.ED 17:16
DX: E83.42 Hypomagnesemia (principal); F07.81 Postconcussional syndrome; G44.309 Post-traumatic headache, unspecified, not intractable; E11.22 Type 2 diabetes mellitus with diabetic chronic kidney disease; I12.9 Hypertensive chronic kidney disease with stage 1 through stage 4 chronic kidney disease, or unspecified chronic kidney disease; N18.9 Chronic kidney disease, unspecified; E78.00 Pure hypercholesterolemia, unspecified; M19.90 Unspecified osteoarthritis, unspecified site; J44.9 Chronic obstructive pulmonary disease, unspecified; E03.9 Hypothyroidism, unspecified; Z99.2 Dependence on renal dialysis; Z88.8 Allergy status to other drugs, medicaments and biological substances; Z79.82 Long term (current) use of aspirin; Z79.899 Other long term (current) drug therapy; Z95.1 Presence of aortocoronary bypass graft
CPT/HCPCS: 36415; 70450; 80053; 81001; 83735; 85025; 99284

== ENCOUNTER 2022-01-03 17:38 | Emergency (ER) | payer MEDICARE, OTHER ==
[2022-01-03 18:02] VITALS: BP 189/74; PULSE 71
== END 2022-01-03 20:00 | disposition home or self-care (01) ==
LOC: CC.ED 17:38
DX: S00.83XA Contusion of other part of head, initial encounter (principal); S05.12XA Contusion of eyeball and orbital tissues, left eye, initial encounter; S05.11XA Contusion of eyeball and orbital tissues, right eye, initial encounter; R22.1 Localized swelling, mass and lump, neck; I12.9 Hypertensive chronic kidney disease with stage 1 through stage 4 chronic kidney disease, or unspecified chronic kidney disease; N18.9 Chronic kidney disease, unspecified; E11.9 Type 2 diabetes mellitus without complications; F41.9 Anxiety disorder, unspecified; F32.A Depression, unspecified; E78.00 Pure hypercholesterolemia, unspecified; J44.9 Chronic obstructive pulmonary disease, unspecified; Z88.8 Allergy status to other drugs, medicaments and biological substances; Z79.899 Other long term (current) drug therapy; W19.XXXA Unspecified fall, initial encounter
CPT/HCPCS: 70450; 70486; 99283; 99284

== ENCOUNTER 2022-04-07 19:26 | Emergency (ER) | payer MEDICARE ==
[2022-04-07 20:04] LABS: CHLORIDE,CL 107 mEq/L (98-106); SODIUM,NA 146 mEq/L (136-145)
[2022-04-07 20:08] LABS: ESTIMATED GFR 20 mL/min (>=60)
[2022-04-07 20:21] VITALS: BP 155/74; PULSE 87
== END 2022-04-07 21:35 | disposition home or self-care (01) ==
LOC: CC.ED 19:26
DX: I50.22 Chronic systolic (congestive) heart failure (principal); J44.9 Chronic obstructive pulmonary disease, unspecified; E78.00 Pure hypercholesterolemia, unspecified; I10 Essential (primary) hypertension; I25.2 Old myocardial infarction; E11.9 Type 2 diabetes mellitus without complications; Z88.8 Allergy status to other drugs, medicaments and biological substances; Z79.899 Other long term (current) drug therapy
CPT/HCPCS: 36415; 71045; 80053; 83735; 84484; 85025; 93005; 93010; 99284; 99285

== ENCOUNTER 2022-10-03 00:08 | Emergency (ER) | payer MEDICARE ==
[2022-10-03] MEDS ORDERED: Aspirin 81 MG Tab.Chew PO ONE (00:29)
[2022-10-03 00:48] LABS: BASOPHILS ABSOLUTE AUTO 0.04 10^3/uL (0.00-0.50); BASOPHILS PERCENT AUTO 0.6 % (0-1); EOSINOPHILS ABSOLUTE AUTO 0.17 10^3/uL (0.00-1.50); EOSINOPHILS PERCENT AUTO 2.7 % (0-6); HEMATOCRIT 31.6 % (42.0-52.0); HEMOGLOBIN 10.8 g/dL (14.0-18.0); IMMATURE GRAN ABSOLUTE AUTO 0.02 10^3/uL (0.00-0.49); IMMATURE GRAN PERCENT AUTO 0.3 % (0.0-4.9); LYMPHOCYTES PERCENT AUTO 26.9 % (24-44); MEAN CORPUSCULAR HEMOGLOBIN 33.3 pg (27.0-32.0); MEAN CORPUSCULAR HGB CONC 34.2 g/dL (32.0-36.0); MEAN CORPUSCULAR VOLUME 97.5 fL (83.0-97.0); MONOCYTES ABSOLUTE AUTO 0.61 10^3/uL (0.00-1.50); MONOCYTES PERCENT AUTO 9.7 % (0-10); NEUTROPHILS ABSOLUTE AUTO 3.78 x10^3/uL (1.80-8.00); NEUTROPHILS PERCENT AUTO 59.8 % (41-71); PLATELET COUNT,PLT 110 10^3/uL (150-400); RED BLOOD CELL COUNT 3.24 x10^6/uL (4.50-6.00); WHITE BLOOD CELL COUNT,WBC 6.3 10^3/uL (4.0-11.0)
[2022-10-03 01:01] LABS: ALBUMIN 3.5 g/dL (3.4-5.0); BILIRUBIN TOTAL 0.3 mg/dL (0.0-1.0); C-REACTIVE PROTEIN 0.09 mg/dL (<=0.30); CALCIUM 8.8 mg/dL (8.4-10.1); EST CRCL DRUG DOSING (CG) 13.65 mL/min; PROTEIN TOTAL,TP 6.6 g/dL (6.4-8.2)
[2022-10-03 01:02] LABS: CREATININE 3.3 mg/dL (0.7-1.3)
[2022-10-03] MEDS ORDERED: Diclofenac Sodium 1% Gel 100 GM Tube TOP ONE (01:03)
[2022-10-03 01:19] VITALS: BP 183/74; PULSE 59
[2022-10-03] MEDS ORDERED: cloNIDine 0.1 MG Tab PO STA (01:24)
[2022-10-03] MEDS ORDERED: Take Home: Cyclobenzaprine 10 MG Tab, 4 Tab Pack PO ONE (01:26)
[2022-10-03] MEDS ORDERED: cloNIDine 0.1 MG Tab PO SCH (01:30)
== END 2022-10-03 01:56 | disposition home or self-care (01) ==
LOC: CC.ED 00:08
DX: M25.511 Pain in right shoulder (principal); I12.9 Hypertensive chronic kidney disease with stage 1 through stage 4 chronic kidney disease, or unspecified chronic kidney disease; E11.22 Type 2 diabetes mellitus with diabetic chronic kidney disease; N18.4 Chronic kidney disease, stage 4 (severe); E78.00 Pure hypercholesterolemia, unspecified; E03.9 Hypothyroidism, unspecified; I25.2 Old myocardial infarction; J44.9 Chronic obstructive pulmonary disease, unspecified; N40.0 Benign prostatic hyperplasia without lower urinary tract symptoms; Z88.8 Allergy status to other drugs, medicaments and biological substances
CPT/HCPCS: 36415; 71046; 73030-RT; 80053; 84484; 85025; 86140; 93005; 93010; 99284; 99285; A9270-GY

== ENCOUNTER 2023-07-31 09:10 | Emergency (ER) | payer MEDICARE ==
[2023-07-31 10:17] LABS: BASOPHILS ABSOLUTE AUTO 0.02 10^3/uL (0.00-0.50); BASOPHILS PERCENT AUTO 0.3 % (0-1); EOSINOPHILS ABSOLUTE AUTO 0.05 10^3/uL (0.00-1.50); EOSINOPHILS PERCENT AUTO 0.8 % (0-6); HEMATOCRIT 33.5 % (42.0-52.0); HEMOGLOBIN 10.8 g/dL (14.0-18.0); IMMATURE GRAN ABSOLUTE AUTO 0.02 10^3/uL (0.00-0.49); IMMATURE GRAN PERCENT AUTO 0.3 % (0.0-4.9); LYMPHOCYTES ABSOLUTE AUTO 0.94 10^3/uL (0.60-5.00); LYMPHOCYTES PERCENT AUTO 14.2 % (24-44); MEAN CORPUSCULAR HGB CONC 32.2 g/dL (32.0-36.0); MEAN CORPUSCULAR VOLUME 99.1 fL (83.0-97.0); MONOCYTES ABSOLUTE AUTO 0.48 10^3/uL (0.00-1.50); MONOCYTES PERCENT AUTO 7.2 % (0-10); NEUTROPHILS ABSOLUTE AUTO 5.13 x10^3/uL (1.80-8.00); NEUTROPHILS PERCENT AUTO 77.2 % (41-71); PLATELET COUNT,PLT 107 10^3/uL (150-400); RED BLOOD CELL COUNT 3.38 x10^6/uL (4.50-6.00); WHITE BLOOD CELL COUNT,WBC 6.6 10^3/uL (4.0-11.0)
[2023-07-31 10:21] VITALS: BP 178/74; PULSE 77
[2023-07-31 10:21] LABS: APPEARANCE,URINE CLEAR (CLEAR); BILIRUBIN,URINE NEGATIVE (NEGATIVE); COLOR,URINE YELLOW (YELLOW); GLUCOSE,URINE 250 mg/dL (NEGATIVE); KETONES,URINE NEGATIVE (NEGATIVE); LEUKOCYTE ESTERASE,URINE NEGATIVE (NEGATIVE); NITRITE,URINE NEGATIVE (NEGATIVE); OCCULT BLOOD,URINE TRACE-INTACT (NEGATIVE); PH,URINE 7.5 (4.5-8.0); PROTEIN,URINE >=300 mg/dL (NEGATIVE); UROBILINOGEN,URINE 0.2 EU/dL (0.2-1.0)
[2023-07-31] MEDS: Acetaminophen/HYDROcodone 325-5 MG Tab PO ONE (10:27)
[2023-07-31] MEDS: Orphenadrine 60 MG/2 ML Inj IM ONE (10:27)
[2023-07-31 10:28] LABS: BACTERIA,URINE NOT SEEN /HPF (NOT SEEN); EPITHELIAL CELLS,URINE RARE /HPF (NOT SEEN); MUCUS,URINE RARE /HPF (NOT SEEN); WBC,URINE NOT SEEN /HPF (0-5)
[2023-07-31] MEDS: Lidocaine 4% 1 each Patch TOP STA (10:29)
[2023-07-31 10:35] LABS: ALBUMIN 3.9 g/dL (3.4-5.0); BILIRUBIN TOTAL 0.6 mg/dL (0.0-1.0); CALCIUM 8.8 mg/dL (8.4-10.1); EST CRCL DRUG DOSING (CG) 11.2 mL/min; MAGNESIUM 1.7 mg/dL (1.8-2.4); POTASSIUM,K 4.1 mEq/L (3.5-5.0); PROTEIN TOTAL,TP 7.1 g/dL (6.4-8.2)
[2023-07-31 10:38] LABS: CREATININE 4.1 mg/dL (0.7-1.3)
== END 2023-07-31 11:02 | disposition home or self-care (01) ==
LOC: CC.ED 09:10
DX: S22.41XA Multiple fractures of ribs, right side, initial encounter for closed fracture (principal); S51.011A Laceration without foreign body of right elbow, initial encounter; J18.9 Pneumonia, unspecified organism; I13.0 Hypertensive heart and chronic kidney disease with heart failure and stage 1 through stage 4 chronic kidney disease, or unspecified chronic kidney disease; I50.9 Heart failure, unspecified; N18.9 Chronic kidney disease, unspecified; J44.9 Chronic obstructive pulmonary disease, unspecified; I25.2 Old myocardial infarction; K21.9 Gastro-esophageal reflux disease without esophagitis; E11.9 Type 2 diabetes mellitus without complications; E03.9 Hypothyroidism, unspecified; Z99.2 Dependence on renal dialysis; Z88.8 Allergy status to other drugs, medicaments and biological substances; Z95.1 Presence of aortocoronary bypass graft; Z79.84 Long term (current) use of oral hypoglycemic drugs; Z79.899 Other long term (current) drug therapy; Z79.82 Long term (current) use of aspirin; W01.198A Fall on same level from slipping, tripping and stumbling with subsequent striking against other object, initial encounter; Y92.009 Unspecified place in unspecified non-institutional (private) residence as the place of occurrence of the external cause; Y93.01 Activity, walking, marching and hiking
CPT/HCPCS: 36415; 71101; 73070; 80053; 81001; 83735; 84484; 85025; 93005; 96372; 99284; A9270; J2360

== ENCOUNTER 2023-08-21 09:59 | Emergency (ER) | payer MEDICARE ==
[2023-08-21 10:18] VITALS: BP 162/68; PULSE 72
[2023-08-21 10:26] LABS: APPEARANCE,URINE CLEAR (CLEAR); BILIRUBIN,URINE NEGATIVE (NEGATIVE); COLOR,URINE YELLOW (YELLOW); GLUCOSE,URINE NEGATIVE (NEGATIVE); KETONES,URINE NEGATIVE (NEGATIVE); LEUKOCYTE ESTERASE,URINE NEGATIVE (NEGATIVE); NITRITE,URINE NEGATIVE (NEGATIVE); OCCULT BLOOD,URINE TRACE-INTACT (NEGATIVE); PH,URINE 8.5 (4.5-8.0); PROTEIN,URINE >=300 mg/dL (NEGATIVE); UROBILINOGEN,URINE 0.2 EU/dL (0.2-1.0)
[2023-08-21 10:37] LABS: BASOPHILS ABSOLUTE AUTO 0.02 10^3/uL (0.00-0.50); BASOPHILS PERCENT AUTO 0.3 % (0-1); EOSINOPHILS ABSOLUTE AUTO 0.06 10^3/uL (0.00-1.50); HEMATOCRIT 29.2 % (42.0-52.0); HEMOGLOBIN 9.3 g/dL (14.0-18.0); IMMATURE GRAN ABSOLUTE AUTO 0.03 10^3/uL (0.00-0.49); IMMATURE GRAN PERCENT AUTO 0.5 % (0.0-4.9); LYMPHOCYTES ABSOLUTE AUTO 0.95 10^3/uL (0.60-5.00); LYMPHOCYTES PERCENT AUTO 15.4 % (24-44); MEAN CORPUSCULAR HEMOGLOBIN 31.7 pg (27.0-32.0); MEAN CORPUSCULAR HGB CONC 31.8 g/dL (32.0-36.0); MEAN CORPUSCULAR VOLUME 99.7 fL (83.0-97.0); MONOCYTES PERCENT AUTO 8.1 % (0-10); NEUTROPHILS ABSOLUTE AUTO 4.62 x10^3/uL (1.80-8.00); NEUTROPHILS PERCENT AUTO 74.7 % (41-71); PLATELET COUNT,PLT 159 10^3/uL (150-400); RED BLOOD CELL COUNT 2.93 x10^6/uL (4.50-6.00); WHITE BLOOD CELL COUNT,WBC 6.2 10^3/uL (4.0-11.0)
[2023-08-21 10:41] LABS: BACTERIA,URINE NOT SEEN /HPF (NOT SEEN); EPITHELIAL CELLS,URINE RARE /HPF (NOT SEEN); MUCUS,URINE OCCASIONAL /HPF (NOT SEEN); RBC,URINE 0-5 /HPF (0-5); WBC,URINE NOT SEEN /HPF (0-5)
[2023-08-21 10:55] LABS: ALANINE AMINOTRANSFERASE,ALT 26 U/L (12-78); ALBUMIN 3.3 g/dL (3.4-5.0); ALKALINE PHOSPHATASE 120 U/L (46-116); ASPARTATE AMNIOTRANSFERASE,AST 24 U/L (15-37); BILIRUBIN TOTAL 0.6 mg/dL (0.0-1.0); BLOOD UREA NITROGEN,BUN 36 mg/dL (7-18); CALCIUM 8.4 mg/dL (8.4-10.1); CARBON DIOXIDE,CO2 28 mmol/L (21-32); CHLORIDE,CL 103 mEq/L (98-106); EST CRCL DRUG DOSING (CG) 12.87 mL/min; GLUCOSE RANDOM 146 mg/dL (75-99); MAGNESIUM 1.5 mg/dL (1.8-2.4); POTASSIUM,K 4.3 mEq/L (3.5-5.0); PROTEIN TOTAL,TP 6.5 g/dL (6.4-8.2); SODIUM,NA 142 mEq/L (136-145)
[2023-08-21 10:58] LABS: C-REACTIVE PROTEIN < 0.50 mg/dL (<=0.50); CREATININE 3.7 mg/dL (0.7-1.3); ESTIMATED GFR 15 mL/min (>=60)
[2023-08-21] MEDS: Amoxicillin/Clavulanate K 500-125 MG Tab PO ONE (11:50)
== END 2023-08-21 12:00 | disposition home or self-care (01) ==
LOC: CC.ED 09:59
DX: J18.9 Pneumonia, unspecified organism (principal); I12.0 Hypertensive chronic kidney disease with stage 5 chronic kidney disease or end stage renal disease; N18.6 End stage renal disease; I10 Essential (primary) hypertension; E78.00 Pure hypercholesterolemia, unspecified; I25.2 Old myocardial infarction; J44.9 Chronic obstructive pulmonary disease, unspecified; K21.9 Gastro-esophageal reflux disease without esophagitis; E11.9 Type 2 diabetes mellitus without complications; E03.9 Hypothyroidism, unspecified; Z95.1 Presence of aortocoronary bypass graft; Z88.1 Allergy status to other antibiotic agents; Z79.899 Other long term (current) drug therapy; Z79.84 Long term (current) use of oral hypoglycemic drugs
CPT/HCPCS: 36415; 70450; 71045; 80053; 81001; 83735; 84484; 85025; 85730; 86140; 93005; 99285; A9270-GY; U0002

== ENCOUNTER 2023-08-22 10:56 | Observation (INO) | payer MEDICARE ==
[2023-08-22 11:19] LABS: BASOPHILS ABSOLUTE AUTO 0.02 10^3/uL (0.00-0.50); BASOPHILS PERCENT AUTO 0.3 % (0-1); EOSINOPHILS ABSOLUTE AUTO 0.03 10^3/uL (0.00-1.50); EOSINOPHILS PERCENT AUTO 0.5 % (0-6); HEMATOCRIT 31.6 % (42.0-52.0); HEMOGLOBIN 10.1 g/dL (14.0-18.0); IMMATURE GRAN ABSOLUTE AUTO 0.02 10^3/uL (0.00-0.49); IMMATURE GRAN PERCENT AUTO 0.3 % (0.0-4.9); LYMPHOCYTES ABSOLUTE AUTO 0.93 10^3/uL (0.60-5.00); LYMPHOCYTES PERCENT AUTO 15.3 % (24-44); MEAN CORPUSCULAR HEMOGLOBIN 31.8 pg (27.0-32.0); MEAN CORPUSCULAR VOLUME 99.4 fL (83.0-97.0); MONOCYTES PERCENT AUTO 8.2 % (0-10); NEUTROPHILS ABSOLUTE AUTO 4.59 x10^3/uL (1.80-8.00); NEUTROPHILS PERCENT AUTO 75.4 % (41-71); PLATELET COUNT,PLT 160 10^3/uL (150-400); RED BLOOD CELL COUNT 3.18 x10^6/uL (4.50-6.00); WHITE BLOOD CELL COUNT,WBC 6.1 10^3/uL (4.0-11.0)
[2023-08-22 12:02] LABS: ALBUMIN 3.6 g/dL (3.4-5.0); BILIRUBIN TOTAL 0.9 mg/dL (0.0-1.0); CALCIUM 9.2 mg/dL (8.4-10.1); EST CRCL DRUG DOSING (CG) 15.91 mL/min; POTASSIUM,K 5.9 mEq/L (3.5-5.0); PROTEIN TOTAL,TP 7.3 g/dL (6.4-8.2)
[2023-08-22 12:05] LABS: CREATININE 2.9 mg/dL (0.7-1.3)
[2023-08-22] MEDS ORDERED: Sodium Chloride 0.9% 500 ML IV SCH (12:30)
[2023-08-22] MEDS: cefTRIAXone 1 GM Vial IVPUSH SCH (13:06)
[2023-08-22] MEDS: Azithromycin 500 MG in Sodium Chloride 0.9% 250 ML IV SCH (13:07)
[2023-08-22] MEDS: Furosemide 40 MG/4 ML VIAL IVPUSH ONE (13:11)
[2023-08-22] MEDS ORDERED: Docusate Sodium 100 MG Cap PO PRN (13:22)
[2023-08-22] MEDS ORDERED: Albuterol 0.042% 1.25 MG/3 ML Neb Soln NEB PRN (13:22)
[2023-08-22] MEDS ORDERED: Non-Formulary Medication 1 Each (Budesonide/Formoterol [Symbicort 160-4.5 Mcg Inhaler (6 G INH PRN (13:22)
[2023-08-22] MEDS ORDERED: Polyethylene Glycol 3350 Powder 17 GM Packet PO PRN (13:22)
[2023-08-22] MEDS: Albuterol/Ipratropium 3.0-0.5 MG/3 ML Neb Soln NEB SCH (13:52)
[2023-08-22 16:32] LABS: CALCIUM 8.6 mg/dL (8.4-10.1); EST CRCL DRUG DOSING (CG) 13.68 mL/min; POTASSIUM,K 5.2 mEq/L (3.5-5.0)
[2023-08-22 16:34] LABS: CREATININE 3.1 mg/dL (0.7-1.3)
[2023-08-22] MEDS: Sodium Chloride 0.9% 1,000 ML IV STA (19:00)
[2023-08-22] MEDS: Metoprolol Tartrate 25 MG Tab PO SCH (19:46)
[2023-08-22] MEDS: Doxazosin 2 MG Tab PO SCH (19:47)
[2023-08-22] MEDS: atorvaSTATin 20 MG Tab PO SCH (19:48)
[2023-08-22] MEDS: Acetaminophen 325 MG Tab PO PRN (19:55)
[2023-08-22] MEDS: Lidocaine 4% 1 each Patch TOP PRN (20:00)
[2023-08-22] MEDS: Lidocaine 4% 1 each Patch ONE (20:53)
[2023-08-22] MEDS ORDERED: LORazepam 0.5 MG Tab PO ONE (22:10)
[2023-08-22] MEDS ORDERED: LORazepam 0.5 MG Tab PO PRN (22:13)
[2023-08-23] MEDS: Levothyroxine 50 MCG Tab PO SCH (06:00)
[2023-08-23] MEDS: [UNRECOGNIZED DRUG - REMARK] PO SCH (08:15)
[2023-08-23] MEDS: Clopidogrel 75 MG Tab PO SCH (08:16)
[2023-08-23] MEDS: amLODIPine 10 MG Tab PO SCH (08:16)
[2023-08-23] MEDS: Calcitriol 0.25 MCG Cap PO SCH (08:17)
[2023-08-23] MEDS: Multivitamin Tab PO SCH (08:18)
[2023-08-23] MEDS: Sertraline 100 MG Tab PO SCH (08:18)
[2023-08-23] MEDS: Isosorbide Mononitrate 30 MG Tab.ER PO SCH (08:18)
[2023-08-23] MEDS: Finasteride 5 MG Tab PO SCH (08:19)
[2023-08-23] MEDS: Ezetimibe 10 MG Tab PO SCH (08:19)
[2023-08-23] MEDS: glipiZIDE 5 MG Tab.ER PO SCH (08:19)
[2023-08-23 10:32] LABS: BASOPHILS ABSOLUTE AUTO 0.03 10^3/uL (0.00-0.50); BASOPHILS PERCENT AUTO 0.4 % (0-1); EOSINOPHILS ABSOLUTE AUTO 0.05 10^3/uL (0.00-1.50); EOSINOPHILS PERCENT AUTO 0.7 % (0-6); HEMATOCRIT 28.8 % (42.0-52.0); HEMOGLOBIN 9.1 g/dL (14.0-18.0); IMMATURE GRAN ABSOLUTE AUTO 0.03 10^3/uL (0.00-0.49); IMMATURE GRAN PERCENT AUTO 0.4 % (0.0-4.9); LYMPHOCYTES ABSOLUTE AUTO 0.78 10^3/uL (0.60-5.00); LYMPHOCYTES PERCENT AUTO 10.8 % (24-44); MEAN CORPUSCULAR HEMOGLOBIN 31.3 pg (27.0-32.0); MEAN CORPUSCULAR HGB CONC 31.6 g/dL (32.0-36.0); MONOCYTES ABSOLUTE AUTO 0.56 10^3/uL (0.00-1.50); MONOCYTES PERCENT AUTO 7.8 % (0-10); NEUTROPHILS ABSOLUTE AUTO 5.75 x10^3/uL (1.80-8.00); NEUTROPHILS PERCENT AUTO 79.9 % (41-71); PLATELET COUNT,PLT 155 10^3/uL (150-400); RED BLOOD CELL COUNT 2.91 x10^6/uL (4.50-6.00); WHITE BLOOD CELL COUNT,WBC 7.2 10^3/uL (4.0-11.0)
[2023-08-23 10:40] LABS: CALCIUM 7.9 mg/dL (8.4-10.1); EST CRCL DRUG DOSING (CG) 12.86 mL/min; MAGNESIUM 1.4 mg/dL (1.8-2.4); POTASSIUM,K 3.6 mEq/L (3.5-5.0)
[2023-08-23 10:42] LABS: CREATININE 3.3 mg/dL (0.7-1.3)
[2023-08-23 18:32] VITALS: BP 155/54; PULSE 70
== END 2023-08-23 18:15 | disposition home or self-care (01) ==
LOC: CC.ED 10:56 → CC.MS 12:01 → UNDOADMOB 12:01 → CC.MS 13:08
PROVIDERS: ADMIT Nurse Practitioner; ATTEND Nurse Practitioner
DX: J18.9 Pneumonia, unspecified organism (principal); I12.0 Hypertensive chronic kidney disease with stage 5 chronic kidney disease or end stage renal disease; N18.6 End stage renal disease; E87.20 Acidosis, unspecified; J44.9 Chronic obstructive pulmonary disease, unspecified; E78.00 Pure hypercholesterolemia, unspecified; E03.9 Hypothyroidism, unspecified; Z79.890 Hormone replacement therapy; Z79.899 Other long term (current) drug therapy
CPT/HCPCS: 36415; 80048; 80053; 83605; 83735; 85025; 86140; 87040; 93005; 94640; 96365; 96366; 96375; 99285; A9270-GY; G0378; J0456; J0696; J1940; J7050; J7620-GY

== ENCOUNTER 2024-05-17 23:19 | Emergency (ER) | payer MEDICARE ==
[2024-05-17 23:36] LABS: BASOPHILS ABSOLUTE AUTO 0.02 10^3/uL (0.00-0.50); BASOPHILS PERCENT AUTO 0.3 % (0-1); EOSINOPHILS PERCENT AUTO 1.5 % (0-6); HEMATOCRIT 34.8 % (42.0-52.0); HEMOGLOBIN 11.6 g/dL (14.0-18.0); IMMATURE GRAN ABSOLUTE AUTO 0.02 10^3/uL (0.00-0.49); IMMATURE GRAN PERCENT AUTO 0.3 % (0.0-4.9); LYMPHOCYTES ABSOLUTE AUTO 0.66 10^3/uL (0.60-5.00); LYMPHOCYTES PERCENT AUTO 9.6 % (24-44); MEAN CORPUSCULAR HEMOGLOBIN 31.5 pg (27.0-32.0); MEAN CORPUSCULAR HGB CONC 33.3 g/dL (32.0-36.0); MEAN CORPUSCULAR VOLUME 94.6 fL (83.0-97.0); MONOCYTES ABSOLUTE AUTO 0.47 10^3/uL (0.00-1.50); MONOCYTES PERCENT AUTO 6.8 % (0-10); NEUTROPHILS ABSOLUTE AUTO 5.61 x10^3/uL (1.80-8.00); NEUTROPHILS PERCENT AUTO 81.5 % (41-71); PLATELET COUNT,PLT 102 10^3/uL (150-400); RED BLOOD CELL COUNT 3.68 x10^6/uL (4.50-6.00); WHITE BLOOD CELL COUNT,WBC 6.9 10^3/uL (4.0-11.0)
[2024-05-18 00:02] LABS: ALBUMIN 3.6 g/dL (3.4-5.0); BILIRUBIN TOTAL 0.5 mg/dL (0.0-1.0); CALCIUM 8.6 mg/dL (8.4-10.1); CREATININE 3.2 mg/dL (0.7-1.3); EST CRCL DRUG DOSING (CG) 13.62 mL/min; POTASSIUM,K 3.7 mEq/L (3.5-5.0); PROTEIN TOTAL,TP 7.2 g/dL (6.4-8.2)
[2024-05-18 00:31] VITALS: BP 165/65; PULSE 73
== END 2024-05-18 00:55 | disposition home or self-care (01) ==
LOC: CC.ED 23:19
DX: S00.03XA Contusion of scalp, initial encounter (principal); S00.83XA Contusion of other part of head, initial encounter; S09.90XA Unspecified injury of head, initial encounter; I12.9 Hypertensive chronic kidney disease with stage 1 through stage 4 chronic kidney disease, or unspecified chronic kidney disease; N18.9 Chronic kidney disease, unspecified; E78.00 Pure hypercholesterolemia, unspecified; J44.9 Chronic obstructive pulmonary disease, unspecified; E11.22 Type 2 diabetes mellitus with diabetic chronic kidney disease; E03.9 Hypothyroidism, unspecified; Z79.899 Other long term (current) drug therapy; Z88.8 Allergy status to other drugs, medicaments and biological substances; Z79.84 Long term (current) use of oral hypoglycemic drugs; W01.198A Fall on same level from slipping, tripping and stumbling with subsequent striking against other object, initial encounter
CPT/HCPCS: 36415; 70450; 72125; 80053; 83735; 85025; 99285

== ENCOUNTER 2025-02-17 17:57 | Observation (INO) | payer MEDICARE ==
[2025-02-17 18:35] LABS: BASOPHILS ABSOLUTE AUTO 0.03 10^3/uL (0.00-0.50); BASOPHILS PERCENT AUTO 0.4 % (0-1); EOSINOPHILS ABSOLUTE AUTO 0.16 10^3/uL (0.00-1.50); EOSINOPHILS PERCENT AUTO 2.3 % (0-6); IMMATURE GRAN ABSOLUTE AUTO 0.04 10^3/uL (0.00-0.49); IMMATURE GRAN PERCENT AUTO 0.6 % (0.0-4.9); LYMPHOCYTES ABSOLUTE AUTO 1.10 10^3/uL (0.60-5.00); LYMPHOCYTES PERCENT AUTO 15.9 % (24-44); MONOCYTES ABSOLUTE AUTO 0.58 10^3/uL (0.00-1.50); MONOCYTES PERCENT AUTO 8.4 % (0-10); NEUTROPHILS ABSOLUTE AUTO 5.02 x10^3/uL (1.80-8.00); NEUTROPHILS PERCENT AUTO 72.4 % (41-71); PLATELET COUNT,PLT 118 10^3/uL (150-400); RED BLOOD CELL COUNT 3.88 x10^6/uL (4.50-6.00); WHITE BLOOD CELL COUNT,WBC 6.9 10^3/uL (4.0-11.0)
[2025-02-17 18:54] LABS: ALANINE AMINOTRANSFERASE,ALT 24.0 U/L (12-78); ASPARTATE AMNIOTRANSFERASE,AST 25.0 U/L (15-37); BILIRUBIN TOTAL 0.7 mg/dL (0.0-1.0); BLOOD UREA NITROGEN,BUN 28.0 mg/dL (7-18); CARBON DIOXIDE,CO2 34.0 mmol/L (21-32); CHLORIDE,CL 97.0 mEq/L (98-106); EST CRCL DRUG DOSING (CG) 14.15 mL/min; GLUCOSE RANDOM 75.0 mg/dL (75-99); POTASSIUM,K 4.0 mEq/L (3.5-5.0); PROTEIN TOTAL,TP 7.3 g/dL (6.4-8.2); SODIUM,NA 140.0 mEq/L (136-145)
[2025-02-17 19:00] LABS: ESTIMATED GFR 18.0 mL/min (>=60)
[2025-02-17 19:01] LABS: CREATININE 3.2 mg/dL (0.7-1.3)
[2025-02-17 19:10] LABS: APPEARANCE,URINE CLEAR (CLEAR); GLUCOSE,URINE NEGATIVE (NEGATIVE); OCCULT BLOOD,URINE TRACE-INTACT (NEGATIVE)
[2025-02-17 19:18] LABS: SQUAMOUS EPITHELIAL CELLS,UR FEW /HPF (NOT SEEN)
[2025-02-17] MEDS ORDERED: hydrALAZINE 20 MG/ML SDV IVPUSH PRN (20:34)
[2025-02-17] MEDS ORDERED: Non-Formulary Medication 1 Each (Budesonide/Formoterol [Symbicort 160-4.5 Mcg Inhaler (6 G INH PRN (20:34)
[2025-02-17] MEDS ORDERED: Ondansetron 4 MG Tab.DIS PO PRN (20:34)
[2025-02-18] MEDS: Budesonide 0.5 MG/2 ML Neb Susp INH SCH (07:29)
[2025-02-18] MEDS: Albuterol 0.083% 2.5 MG/3 ML Neb Soln INH SCH (07:29)
[2025-02-18] MEDS: glipiZIDE 5 MG Tab.ER PO SCH (07:30)
[2025-02-18] MEDS: Vitamin B Complex Cap PO SCH (07:31)
[2025-02-18 07:43] LABS: BLOOD UREA NITROGEN,BUN 39.0 mg/dL (7-18); CARBON DIOXIDE,CO2 33.0 mmol/L (21-32); CHLORIDE,CL 99.0 mEq/L (98-106); EST CRCL DRUG DOSING (CG) 10.38 mL/min; GLUCOSE RANDOM 109.0 mg/dL (75-99); POTASSIUM,K 4.8 mEq/L (3.5-5.0); SODIUM,NA 141.0 mEq/L (136-145)
[2025-02-18 07:51] LABS: BASOPHILS ABSOLUTE AUTO 0.02 10^3/uL (0.00-0.50); BASOPHILS PERCENT AUTO 0.3 % (0-1); EOSINOPHILS ABSOLUTE AUTO 0.25 10^3/uL (0.00-1.50); EOSINOPHILS PERCENT AUTO 3.2 % (0-6); IMMATURE GRAN ABSOLUTE AUTO 0.04 10^3/uL (0.00-0.49); IMMATURE GRAN PERCENT AUTO 0.5 % (0.0-4.9); LYMPHOCYTES ABSOLUTE AUTO 0.99 10^3/uL (0.60-5.00); LYMPHOCYTES PERCENT AUTO 12.8 % (24-44); MONOCYTES ABSOLUTE AUTO 0.90 10^3/uL (0.00-1.50); MONOCYTES PERCENT AUTO 11.6 % (0-10); NEUTROPHILS ABSOLUTE AUTO 5.53 x10^3/uL (1.80-8.00); NEUTROPHILS PERCENT AUTO 71.6 % (41-71); PLATELET COUNT,PLT 130 10^3/uL (150-400); RED BLOOD CELL COUNT 3.83 x10^6/uL (4.50-6.00); WHITE BLOOD CELL COUNT,WBC 7.7 10^3/uL (4.0-11.0)
[2025-02-18 07:59] LABS: CREATININE 4.2 mg/dL (0.7-1.3); ESTIMATED GFR 13.0 mL/min (>=60)
[2025-02-18 12:29] VITALS: BP 138/64; PULSE 86
== END 2025-02-18 14:35 | disposition home or self-care (01) ==
LOC: CC.ED 17:57 → SUPCPDRO 17:57 → CC.MS 19:59 → CC.ED 19:59 → UNDOADMOB 19:59 → CC.MS 20:06
PROVIDERS: ADMIT Nurse Practitioner; ATTEND Nurse Practitioner
DX: R41.0 Disorientation, unspecified (principal); R53.1 Weakness; I12.0 Hypertensive chronic kidney disease with stage 5 chronic kidney disease or end stage renal disease; E11.22 Type 2 diabetes mellitus with diabetic chronic kidney disease; N18.6 End stage renal disease; E03.9 Hypothyroidism, unspecified; E78.00 Pure hypercholesterolemia, unspecified; Z88.8 Allergy status to other drugs, medicaments and biological substances; Z87.891 Personal history of nicotine dependence; Z20.822 Contact with and (suspected) exposure to COVID-19; Z79.899 Other long term (current) drug therapy; Z79.890 Hormone replacement therapy
CPT/HCPCS: 36415; 70450; 71045; 80048; 80053; 81001; 83735; 84484; 85025; 85730; 87426-QW; 93005; 93010; 94640; 97110-GP; 97161-GP; 99223; 99238; 99285; A9270-GY

== ENCOUNTER 2025-03-15 16:58 | Emergency (ER) | payer MEDICARE ==
[2025-03-15 17:08] VITALS: BP 174/62; PULSE 60
[2025-03-15 17:36] LABS: BASOPHILS ABSOLUTE AUTO 0.04 10^3/uL (0.00-0.50); BASOPHILS PERCENT AUTO 0.5 % (0-1); EOSINOPHILS ABSOLUTE AUTO 0.06 10^3/uL (0.00-1.50); EOSINOPHILS PERCENT AUTO 0.8 % (0-6); IMMATURE GRAN ABSOLUTE AUTO 0.02 10^3/uL (0.00-0.49); IMMATURE GRAN PERCENT AUTO 0.3 % (0.0-4.9); LYMPHOCYTES ABSOLUTE AUTO 0.74 10^3/uL (0.60-5.00); LYMPHOCYTES PERCENT AUTO 9.5 % (24-44); MONOCYTES ABSOLUTE AUTO 0.42 10^3/uL (0.00-1.50); MONOCYTES PERCENT AUTO 5.4 % (0-10); NEUTROPHILS ABSOLUTE AUTO 6.47 x10^3/uL (1.80-8.00); NEUTROPHILS PERCENT AUTO 83.5 % (41-71); PLATELET COUNT,PLT 132 10^3/uL (150-400); RED BLOOD CELL COUNT 3.67 x10^6/uL (4.50-6.00); WHITE BLOOD CELL COUNT,WBC 7.8 10^3/uL (4.0-11.0)
[2025-03-15 17:49] LABS: ALANINE AMINOTRANSFERASE,ALT 18 U/L (12-78); ASPARTATE AMNIOTRANSFERASE,AST 21 U/L (15-37); BILIRUBIN TOTAL 0.7 mg/dL (0.0-1.0); CARBON DIOXIDE,CO2 18 mmol/L (21-32); CHLORIDE,CL 109 mEq/L (98-106); EST CRCL DRUG DOSING (CG) 5.52 mL/min; GLUCOSE RANDOM 160 mg/dL (75-99); PROTEIN TOTAL,TP 7.3 g/dL (6.4-8.2); SODIUM,NA 144 mEq/L (136-145)
[2025-03-15 17:51] LABS: BLOOD UREA NITROGEN,BUN 133 mg/dL (7-18); CREATININE 8.2 mg/dL (0.7-1.3); ESTIMATED GFR 6 mL/min (>=60); POTASSIUM,K 7.7 mEq/L (3.5-5.0)
[2025-03-15] MEDS ORDERED: Sodium Chloride 0.9% 10 ML Syringe FLUSH PRN (17:58)
[2025-03-15] MEDS: Calcium Gluconate 10% 1 GM/10 ML SDV IVPUSH ONE (18:12)
[2025-03-15] MEDS: 50% Dextrose in Water 50 ML Syringe IV ONE (18:18)
[2025-03-15] MEDS: Insulin Regular, Human 100 Units/ML 10 ML Vial IVPUSH ONE (18:21)
[2025-03-15] MEDS: Ondansetron 4 MG/2 ML SDV IVPUSH PRN (18:28)
== END 2025-03-15 18:55 ==
LOC: CC.ED 16:58
DX: I12.0 Hypertensive chronic kidney disease with stage 5 chronic kidney disease or end stage renal disease (principal); N18.6 End stage renal disease; E87.5 Hyperkalemia; J44.9 Chronic obstructive pulmonary disease, unspecified; E78.00 Pure hypercholesterolemia, unspecified; E11.22 Type 2 diabetes mellitus with diabetic chronic kidney disease; E03.9 Hypothyroidism, unspecified; K21.9 Gastro-esophageal reflux disease without esophagitis; Z95.1 Presence of aortocoronary bypass graft; Z79.899 Other long term (current) drug therapy; Z79.84 Long term (current) use of oral hypoglycemic drugs; Z88.8 Allergy status to other drugs, medicaments and biological substances; Z99.2 Dependence on renal dialysis
CPT/HCPCS: 36415; 80053; 85025; 86140; 93010; 96361; 96374; 96375; 99284; 99285-25; A9270-GY; J0612; J2405; J7030